=== PATIENT | female | born 1970 | race Caucasian/White ===

== ENCOUNTER 2016-08-02 21:19 | Inpatient (IN) | payer BC ==
[~2016-08-02] VITALS: Ht 162.6 cm; Wt 128.5 kg
[~2016-08-02 21:19] MED LIST: BUPR100T5 PO; CETI-115 PO; CLIN300C86 PO; FLUT9.9S; IPRA3AMP AEROSOL; LISI10TA PO; MONT5TAB14 PO; TIOT4MIS5 ORAL INH; diflucan PO
--- OUTSIDE RECORDS SUMMARY | 2016-08-02 21:22 | XMS REPORT | Continuity of Care Document ---
Author Author [facility] Jessica [facility] Address Unknown Phone Unavailable Support Name Relationship Address Phone THERESA MARIO Nicole JENSEN Caregiver [address] [place] [address] Unavailable SHORTY CHONG DO Caregiver [address] [place] [address] [place] [address] Unavailable BENJAMIN ALDANA Next Of Kin [address] [place] [address] Insurance Providers Guarantor Jay Aldana Address [address] [place] [address] Email [email or web address] Policy Number [id number] Subscriber's Name Jay Aldana Relationship 18 Self Group Number [id number] Chief Complaint and Reason for Visit Chief Complaint Skin Rash/Abscess/Injury Reason for Visit [id number] Cellulitis Problems Active Problems Medical Problem Onset Date Status Anxiety Unknown Acute Asthma exacerbation Unknown Acute Chronic sinusitis, unspecified Unknown Chronic Depression Unknown Chronic Dyspnea on exertion Unknown Acute HTN (hypertension) Unknown Chronic History of headache Unknown Chronic History of high cholesterol Unknown Chronic Obesity Unknown Chronic Steroid-induced hyperglycemia Unknown Acute Surgical Problem Onset Date Status History of ventral hernia repair Unknown Resolved Past Problems Medical Problem Onset Date Cellulitis Unknown Fungal infection of skin Unknown Medications Current Home Medications Medication Dose Units Route Directions Days Qty Instructions Start Date Bupropion Hcl (Wellbutrin Sr) 100 Mg Tablet.er 05/24/16 Cetirizine Hcl (Zyrtec) 10 Mg Tablet 10 Mg Oral Bedtime 30 Days 08/21 Clindamycin Hcl 300 Mg Capsule 300 Mg Oral Four Times Daily 7 Days [address] Shyam Del Real [employer] [facility] [address] [phone] 05/24/16 Diflucan 150 Mg Tab 150 Mg Oral One Time [address] Shyam Del Real [employer] [facility] [address] [phone] 05/24/16 Fluticasone Propionate (Flonase Allergy Relief 50 Mcg/Actuation Nasal) 9.9 Ml [place].susp Unknown Dose 05/24/16 Ipratropium/Albuterol Sulfate (Iprat-Albut 0.5-3(2.5) Mg/3 Ml) 3 Ml Solution 3 Ml Aerosol Tx. Four Times Daily 1 Box 04/13/15 Lisinopril (Prinivil) 10 Mg Tablet 10 Mg Oral Twice A Day 30 Days 04/13/15 Montelukast Sodium (Singulair) 5 Mg Tablet 1 Tab Oral Bedtime Tiotropium [place] (Spiriva Respimat) 4 Gm Mist.inhal 1 Puff Oral Inhalation Daily 05/24/16 Past Home Medications Medication Directions Ordered Status Azithromycin (Zithromax) 1 Gm Packet, 250 Mg Oral Onetime 04/10/15 Discontinued Benzonatate (Tessalon Perle) 100 Mg Capsule, 200 Mg Oral Three Times A Day as needed for Prn Orders 04/10/15 Discontinued Cetirizine Hcl/Pseudoephedrine (Zyrtec-D Tablet) Unknown Strength Tab.er.12h, Unknown Dose Oral Daily 04/10/15 Discontinued Clonazepam (Klonopin) 0.5 Mg Tablet, 0.5 Tab Oral As Needed 04/10/15 Discontinued Diflu , 05/24/16 Discontinued Fluticasone/Salmeterol (Advair 500-50 Diskus) 1 Disk W/Dev Disk.w.dev, 1 Puff Oral Inhalation Resp.tx Twice A Day 04/10/15 Discontinued Lisinopril (Prinivil) 5 Mg Tablet, 10 Mg Oral Twice A Day 04/10/15 Discontinued Prednisone 1 Mg Tablet, 50 Mg Oral Daily 04/10/15 Discontinued Prednisone 1 Mg Tablet, 40 Mg Oral Daily 04/10/15 Discontinued Prednisone 1 Mg Tablet, 30 Mg Oral Daily 04/10/15 Discontinued Prednisone 1 Mg Tablet, 20 Tab Oral Daily 04/10/15 Discontinued Prednisone 1 Mg Tablet, 10 Mg Oral Daily 04/10/15 Discontinued Social History Social History Problem Response Recorded Date/Time Onset Date Status Former tobacco use 04/10/2015 11:58am Unknown Resolved Has the pt used tobacco in the last 12 months No 04/10/2015 12:01pm Not Applicable Not Applicable Tobacco Usage none 04/10/2015 11:59am Not Applicable Not Applicable Hospital Discharge Instructions No hospital discharge instructions. Plan of Care Discharge Date 05/24/16 11:15am Disposition 01 DISCHARGED HOME, SELF-CARE Condition at Discharge Stable Instructions/Education Provided Cellulitis (ED) Tinea Corporis (DC) Prescriptions See Medication Section Referrals SHORTY CHONG DO Address: [address] [place] [address] RAHUL WHITE [phone] Additional Instructions/Education Take clindamycin as directed. Use Diflucan today as directed. Follow with primary care provider. Keep gauze in the area of the skin rash to wick away moisture Functional Status No functional status results. Allergies, Adverse Reactions, Alerts Allergen Type Severity Reaction Status Last Updated Morphine Allergy Severe HYPOTENSION Active 05/24/16 nerissa Allergy Unknown SWELLING Active 05/24/16 Immunizations Query Response on File Recorded Date/Time Hx Influenza Vaccination Y fall 201404/10/15 12:01pm Hx Pneumococcal Vaccination No 04/10/15 12:01pm Hx Influenza Vaccination Y fall 201404/10/15 12:01pm Vital Signs Acute Vital Signs Vital Response Date/Time Temperature (Fahrenheit) 97.7 deg F (96.8 - 99.1) 05/24/2016 11:04am Temperature (Calculated Celsius) 36.26493 degrees C (36.0 - 37.3) 05/24/2016 11:04am Pulse Rate (adult) 110 bpm (60 - 100) 05/24/2016 11:04am Respiratory Rate 20 breaths/min (10 - 20) 05/24/2016 11:04am O2 Sat by Pulse Oximetry 97 % (90 - 100) 05/24/2016 11:04am Blood Pressure 157/109 mm Hg 05/24/2016 11:04am Height (Inches) 63.50 inches 05/24/2016 11:04am Weight (Kilograms) 126.100 kg 05/24/2016 11:04am Body Mass Index (BMI) 48.0 05/24/2016 11:04am Results No known relevant diagnostic tests, laboratory data and/or discharge summary. Procedures No known history of procedures. Encounters Encounter Location Arrival/Admit Date Discharge/Depart Date Attending Provider Departed Emergency Room [facility] 05/24/16 10:12am 05/24/16 11: 15am THERESA MARIO APRN Recent Diagnosis
--- NOTE | 2016-08-02 21:33 | ERPDOC ---
Departure Disposition Decision Date: August 02, 2016 Disposition Decision Time: 22:29 Disposition: 02 TO [facility] Impression Impression Impression: Primary Impression: Chest pain Chest pain type: unspecified Qualified Codes: R07.9 - Chest pain, unspecified Additional Impression: Elevated troponin Severity: Moderate Condition: Stable Seen By: Mid-level only Referrals: SHORTY CHONG DO (Family) Problems/Meds/Labs Reviewed?: Yes Medications reviewed and manag: Yes Follow up care ordered?: Yes Mental Status: Alert HPI - Chest Pain General Chief Complaint: Chest Pain Stated Complaint: CP Time Seen by Provider: 21:21 Source: patient Exam Limitations: no limitations HPI - Chest Pain Initial Comments She presents to ER tonight for evaluation of chest pain. This started last night. Feels like a tight band around her upper chest that does come and go. Got worse today and more persistent in nature. She did get a little nauseated and diaphoretic about an hour before coming to ER. Upon arrival she is very anxious but does deny any chest pain or tightness at this time. Former smoker, quit 7 years ago. She has never seen a motor grader rough grade in the past but she has a significant family history of heart disease. Her uncle did have a sudden cardiac arrest due to DC about 3 weeks ago, her father had bypass surgery at age 50. She has been using her inhaler at home to see if this will help but has not really made a difference. Occurred At: home Onset/Timing: Gradual Duration: 12-24 hrs Activities at Onset/Context: none Quality: sharp Associated Symptoms: diaphoresis, nausea/vomiting (Nausea), shortness of breath (with the pain), DENIES: abdominal pain, back pain, dizziness, edema, fast HR, fatigue, fever/chills, headache, heartburn, irregular HR, rash, slow HR , swelling/lump in chest, syncope, weakness Chest Pain Radiation: no radiation Nitro Today/Relief: no nitro taken today Aspirin Treatment Today: 81 mg x 4 Prior Chest Pain/Cardiac [place]: no prior chest pain, no prior cardiac workup Hx of Similar Symptoms: No Allergies: Coded Allergies: morphine (Verified Allergy, Severe, HYPOTENSION, 05/24/16) HYPOTENSION, ITCHING nerissa (Verified Allergy, Unknown, SWELLING, 05/24/16) FACE AND TONGUE SWELLING Past History Patient Surgical History 3 Umbilical hernia [id number] Ventral hernia repair with abdominal reconstruction Vaccines Hx Influenza Vaccination: Yes (FALL 2014) Hx Pneumococcal Vaccination: No Social History Sexuality: male partner Review of Systems Constitutional Constitutional: DENIES: chills, dizziness, fatigue, fever, weakness ENMT Ears: DENIES: drainage, pain Sinuses: DENIES: congestion, rhinorrhea Mouth/Throat: DENIES: painful swallowing, scratchy throat, sore throat Cardiovascular Cardiac: chest pain, DENIES: dyspnea on exertion, orthopnea Rhythm/Rate: DENIES: irregular beat, palpitations Vascular: DENIES: pedal edema, unilateral swelling Pulmonary Respiratory: DENIES: cough, dyspnea, sputum, tachypnea GI Upper Abdomen: nausea, DENIES: pain, vomiting Lower Abdomen: DENIES: constipation, diarrhea, pain Integumentary Skin: DENIES: rash Neurological General: DENIES: headache, numbness, tingling, weakness Physical Exam General General Nourishment: well nourished, well developed, appears stated age, no acute distress, adult General Body Habitus: well groomed Vitals and Pain First Documented Vital Signs Date Time Temp Pulse Resp B/P Pulse Ox O2 Delivery O2 Flow Rate FiO2 08/02/16 22:46 104 18 158/97 94 Room Air 08/02/16 23:15 98.5 Weight: Kilograms: Height (feet): 5 Height (inches): 63.50 Triage Pain Scale: RN VS reviewed by Provider: Yes Normal Exams: Neck: Full range of motion, without adenopathy, JVD, bruits or thyromegaly Chest/Resp: Clear all singer, with good airflow, and symmetry bilaterally CV: Regular rate and rhythm, without murmur or gallop, Pulses 2+ all extremities, capillary refill, <2 seconds all ext., no pedal edema noted Abdomen: Bowel sounds positive, soft, non-tender, non-distended, no hepatosplenomegaly, masses or bruits noted Lymphatic: No lymphadenopathy, or lymphedema noted Integumentary: No rashes, hives, or bruising noted Neurologic: Patient is alert, and oriented Psychiatric: Patient exhibits, appropriate attention, emotion and affect Differential Diagnoses Considering: Acute DC, Anxiety/Panic, Angina, Esophageal Spasm, GERD Progress Results/Orders Orders Procedure Category Date Status Time EKG EKG 08/02/16 Taken Cbc W/Auto LAB 08/02/16 Complete Diff-Reflex Manual Bmp - Basic Metabolic LAB 08/02/16 Complete Panel Troponin I W LAB 08/02/16 Complete Hemolysis Index Chest 1 View RAD 08/02/16 Taken Aspirin (Asa) PHA 08/03/16 In Process 09:00 Iv Lock (Ed Only) EDM 08/02/16 Transmitted 21:55 Nitroglycerin PHA 08/02/16 In Process (Nitrostat) 22:00 Place In Facility As: ADMIT 08/02/16 Transmitted Nitroglycerin PHA 08/02/16 Complete Ointment (Nitro-Bid) 22:30 Enoxaparin (Lovenox) PHA 08/02/16 Complete 22:30 Troponin I W LAB 08/03/16 Logged Hemolysis Index 03:30 Troponin I W LAB 08/03/16 Logged Hemolysis Index 09:30 Troponin I W LAB 08/03/16 Logged Hemolysis Index 15:30 Enoxaparin (Lovenox) PHA 08/03/16 In Process 09:00 Nitroglycerin PHA 08/03/16 In Process Ointment (Nitro-Bid) 03:00 Lab Results Laboratory Tests Test 08/02/16 21:38 White Blood Count 10.2T/MM3 Red Blood Count 4.82M/MM3 Hemoglobin 14.9GM/DL Hematocrit 42.0% Mean Corpuscular Volume 87.1UM3 Mean Corpuscular Hemoglobin 30.9UUG Mean Corpuscular Hemoglobin Concent 35.5GM/DL RDW Standard Deviation 39.4FL Platelet Count 397T/MM3 Mean Platelet Volume 8.4UM3 Immature Granulocyte % (Auto) % Neutrophils (%) (Auto) % Lymphocytes (%) (Auto) % Monocytes (%) (Auto) % Eosinophils (%) (Auto) % Basophils (%) (Auto) % Absolute Immature Granulocyte (auto T/MM3 Absolute Neutrophils (auto) T/MM3 Absolute Lymphocytes (auto) T/MM3 Absolute Monocytes (auto) T/MM3 Absolute Eosinophils (auto) T/MM3 Absolute Basophils (auto) T/MM3 Neutrophils % (Manual) 84.0% Band Neutrophils % 1.0% Lymphocytes % (Manual) 13.0% Monocytes % (Manual) 1.0% Basophils % (Manual) 1.0% Absolute Neutrophils (Manual) 8.6T/MM3 Band Neutrophils # 0.1T/MM3 Lymphocytes # (Manual) 1.3T/MM3 Monocytes # (Manual) 0.1T/MM3 Basophils # (Manual) 0.1T/MM3 Red Cell Morphology Comment Normal Turbidity < 20 Sodium Level 142MEQ/L Potassium Level 4.5MEQ/L Chloride Level 104MEQ/L Carbon Dioxide Level 22MEQ/L Anion Gap 16MEQ/L Blood Urea Nitrogen 22.0MG/DL Creatinine 0.9MG/DL Glomerular Filtration Rate Calc 67 BUN/Creatinine Ratio 24RATIO Glucose Level 215MG/DL Calculated Osmolality 282MOSM/KG Calcium Level 9.9MG/DL Icterus Index < 2 Troponin I 0.127ng/ml Chemistry Specimen Hemolysis < 15 Medications Current ED Medications Nitroglycerin (Nitrostat) 0.4 mg Q5MIN PRN SL CHEST PAIN; Start 08/02/16 at 22: 00 Progress Progress 2216- Troponin is elevated at 0.127. She did have another episode of chest pain but it went away prior to any Nitro given. Did talk with Lenore about the elevated troponin. She does want to have Dr Luevano consulted regarding her labs and so will contact him. EKG does show some mild St depression in V5 and V6. CBC is normal. BMP is normal. Troponin does come back elevated at 0.127. She is not having any chest pain at this time. Chest xray is normal. Did call and speak with Dr Guerrero and he does agree to admit at this time OBS to CCU. Orders for Lovenox and Nitro paste given. Xray Xray : Reason for Exam: Chest pain Xray: CXR Portable Interpretation: Normal MARTINA RODRIGUEZ APRN August 02, 2016 21:33
[2016-08-02 21:45] LABS: HGB - HEMOGLOBIN 14.9 GM/DL (12-16); MEAN CORPUSCULAR HGB 30.9 UUG (26-34); MEAN CORPUSCULAR HGB CONC(MCHC 35.5 GM/DL (31-37); MEAN CORPUSCULAR VOLUME 87.1 UM3 (80-100); MEAN PLATELET VOLUME 8.4 UM3 (9.4-12.4); RED BLOOD COUNT 4.82 M/MM3 (4.00-5.20); WBC - WHITE BLOOD COUNT 10.2 T/MM3 (4.5-11.0)
[2016-08-02 21:52] LABS: ANION GAP 16 MEQ/L (5-15); BUN/CREATININE RATIO 24 RATIO (6-26); CALCIUM 9.9 MG/DL (8.4-10.2); CHLORIDE 104 MEQ/L (98-107); CO2 - CARBON DIOXIDE 22 MEQ/L (22-30); CREATININE 0.9 MG/DL (0.7-1.2); GLOMERULAR FILTRATION RATE 67; GLUCOSE 215 MG/DL (65-110); POTASSIUM 4.5 MEQ/L (3.6-5); SODIUM 142 MEQ/L (134-144)
[2016-08-02] MEDS ORDERED: NITROGLYCERIN 0.4 MG SUBLINGUAL TABLET SL PRN (22:00)
[2016-08-02 22:30] LABS: BAND NEUTROPHILS # 0.1 T/MM3; BASOPHILS # (MANUAL) 0.1 T/MM3 (0-0.2); LYMPHOCYTES # (MANUAL) 1.3 T/MM3 (1-4.8); MONOCYTES # (MANUAL) 0.1 T/MM3 (0-0.8); NEUTROPHILS #(MANUAL)-ABSOLUTE 8.6 T/MM3 (1.8-7.7); TOTAL CELLS COUNTED 100 %
[2016-08-02] MEDS ORDERED: NITROGLYCERIN 2% OINTMENT 1 G PACKET TOP ONE (22:30)
[2016-08-02] MEDS ORDERED: ENOXAPARIN 120 MG/0.8 ML INJECTION SQ ONE (22:30)
[2016-08-02] MEDS: ASPIRIN 81 MG CHEWABLE TABLET PO SCH (22:39)
--- NOTE | 2016-08-02 23:00 | NUR ---
Admit To CCU 2 at this time, in no acute distress, will continue to monitor.
[2016-08-02 23:05] VITALS: BP 177/105; PULSE 111; RESP 20; O2SAT 95
[2016-08-02 23:07] VITALS: PULSE 110
[2016-08-02 23:09] VITALS: Ht 162.6 cm; Wt 128.5 kg
[2016-08-02 23:15] VITALS: BP 171/98; PULSE 107; RESP 28; TEMP 98.5; O2SAT 94
[2016-08-02 23:30] VITALS: BP 142/77; PULSE 103; RESP 22; O2SAT 94
[2016-08-02 23:45] VITALS: BP 142/73; PULSE 99; RESP 22; O2SAT 93
[2016-08-03] VITALS (33 sets, daily range): BP systolic 109–210; BP diastolic 55–111; PULSE 69–107; RESP 12–61; TEMP 97.9–98.4; O2SAT 92–99
[2016-08-03] MEDS ORDERED: CLON0.5T4 PO (00:26)
[2016-08-03] MEDS ORDERED: MONT10TA25 PO (00:26)
[2016-08-03] MEDS ORDERED: PROM25TA7 PO (00:26)
[2016-08-03] MEDS ORDERED: PRED10TA PO (00:26)
[2016-08-03] MEDS ORDERED: CLONAZEPAM 0.5 MG TABLET PO PRN (00:30)
[2016-08-03] MEDS ORDERED: ONDANSETRON 4mg/2ml INJECTION IV PRN (00:30)
[2016-08-03] MEDS ORDERED: HYDROMORPHONE 2mg/ml INJECTION IV PRN (00:30)
[2016-08-03] MEDS ORDERED: METOCLOPRAMIDE 10mg/2ml INJECTION IV PRN (00:30)
[2016-08-03] MEDS ORDERED: NITROGLYCERIN 0.4 MG SUBLINGUAL TABLET SL PRN (00:30)
[2016-08-03] MEDS ORDERED: SODI45SP7 EA NOSTRIL (00:51)
[2016-08-03] MEDS ORDERED: ALBU18HF2 ORAL INH (00:51)
[2016-08-03] MEDS: NORMAL SALINE 1,000 ML IV SCH ×2 (00:52→14:15)
[2016-08-03] MEDS ORDERED: OXYM15MI INH (01:07)
[2016-08-03] MEDS ORDERED: LISI10TA7 PO (01:19)
[2016-08-03] MEDS: NITROGLYCERIN 2% OINTMENT 1 G PACKET TOP SCH ×8 (01:36→21:29)
[2016-08-03 01:41] LABS: BLOOD, URINE 2+ (NEGATIVE); COLOR,URINE YELLOW (YELLOW); LEUKOCYTE ESTERASE ,URINE NEGATIVE (NEGATIVE); NITRITE,URINE NEGATIVE (NEGATIVE); UROBILINOGEN,URINE NORMAL (NORMAL)
[2016-08-03 01:44] LABS: BACTERIA,URINE NONE SEEN (NEGATIVE); SQUAMOUS EPITHELIAL CELL,UR 0-5; WBC,URINE 0-1 /HPF (0-5)
--- NOTE | 2016-08-03 02:47 | NUR ---
Provider Call From Selma maciel to discuss Metoprolol further, provider and pt are in agreement that benefit out weighs risk r/t asthma. Selma also requests to draw am labs and next troponin now. lab call for draw.
[2016-08-03 02:57] LABS: BASOPHILS % (AUTO) 0.3 % (0-2); EOSINOPHILS % (AUTO) 0.2 % (0-4); HCT - HEMATOCRIT 39.2 % (36-46); HGB - HEMOGLOBIN 13.7 GM/DL (12-16); IMMATURE GRANULOCYTE # (AUTO) 0.03 T/MM3 (0.00-0.03); IMMATURE GRANULOCYTE % (AUTO) 0.3 % (0.0-0.5); LYMPHOCYTES # (AUTO) 1.9 T/MM3 (1-4.8); LYMPHOCYTES % (AUTO) 19.5 % (23-45); MEAN CORPUSCULAR HGB 31.3 UUG (26-34); MEAN CORPUSCULAR HGB CONC(MCHC 34.9 GM/DL (31-37); MEAN CORPUSCULAR VOLUME 89.5 UM3 (80-100); MEAN PLATELET VOLUME 8.4 UM3 (9.4-12.4); MONOCYTES # (AUTO) 0.3 T/MM3 (0-0.8); MONOCYTES % (AUTO) 3.4 % (0-9.0); NEUTROPHILS #(AUTO)-ABSOLUTE 7.6 T/MM3 (1.8-7.7); NEUTROPHILS % (AUTO) 76.3 % (33-66); RED BLOOD COUNT 4.38 M/MM3 (4.00-5.20); WBC - WHITE BLOOD COUNT 9.9 T/MM3 (4.5-11.0)
[2016-08-03 03:03] LABS: ALBUMIN/GLOBULIN RATIO 1.4 RATIO (1.1-2.2); ALKALINE PHOSPHATASE 68 U/L (38-126); ALT (SGPT) 38 U/L (9-52); ANION GAP 12 MEQ/L (5-15); AST (SGOT) 28 U/L (14-36); BUN/CREATININE RATIO 24 RATIO (6-26); CALCIUM 9.3 MG/DL (8.4-10.2); CHLORIDE 104 MEQ/L (98-107); CO2 - CARBON DIOXIDE 26 MEQ/L (22-30); CREATININE 0.8 MG/DL (0.7-1.2); GLOMERULAR FILTRATION RATE 77; GLUCOSE 151 MG/DL (65-110); POTASSIUM 4.4 MEQ/L (3.6-5); SODIUM 142 MEQ/L (134-144); TOTAL PROTEIN 6.8 G/DL (6.3-8.2)
[2016-08-03 03:33] LABS: THYROID STIM HORMONE-TSH 0.48 MIU/L (0.47-4.68)
--- NOTE | 2016-08-03 05:31 | NUR ---
Pharmacy Notified Scott Hoffmann of Heparin consult. States recommended 12h start time from previous Lovonox dosing. Selma JENSEN had previously verbalizes to this RN to clarify with pharmacy and follow their recommendations. Will plan to wait at this time per Scott who states pharmacy will be staff shortly and will evaluate further.
[2016-08-03] MEDS ORDERED: HEPARIN 20,000 units/D5W 500ml 500 ML IV SCH ×2 (06:00→08:00)
[2016-08-03 07:04] LABS: HEMOGLOBIN A1C 5.6 % (6.1-7.9)
--- NOTE | 2016-08-03 07:59 | NUR ---
HEPARIN CONSULT (Initial): Dx: CHEST PAIN, INCREASED TROPONIN Baseline PTT = 39.7 Sec. Baseline platelet count = 334 T/mm3. PTT Target Range = 50-75 Will give no Heparin Bolus, start Heparin Drip at 1520units/hr (38ml/hr). Heparin 20,000 units in D5W 500ml. We will continue to monitor and make adjustments accordingly. Thank you.
--- NOTE | 2016-08-03 08:08 | NUR ---
Heparin Gtt At this time holding on starting heparin gtt per Selma JENSEN with Yolanda. Will start when told.
[2016-08-03] MEDS: BuPROPion SR (12 HR) 100 MG TABLET PO SCH ×2 (08:50→21:17)
[2016-08-03] MEDS: LISINOPRIL 5 MG TABLET PO SCH (08:50)
[2016-08-03] MEDS ORDERED: ENOXAPARIN 120 MG/0.8 ML INJECTION SQ SCH (09:00)
--- NOTE | 2016-08-03 10:11 | DI ---
Indication: ITS.REASON: chest pain PROCEDURE: CHEST 1 VIEW: Encounter: Initial Comparison: April 10, 2015 FINDINGS: The lungs are clear. There is no abnormal airspace opacity, pleural effusion or pneumothorax identified. The heart size, pulmonary vasculature and mediastinum are within normal limits. No significant skeletal abnormality is seen. IMPRESSION: No acute cardiopulmonary abnormality. .
--- NOTE | 2016-08-03 10:59 | NUR ---
CM SPOKE WITH PT, INTRODUCED SELF, EXPLAINED ROLE, PROVIDED CONTACT. PT STATED SHE LIVES IN [place] WITH SPOUSE, AND HER DC PLAN IS TO RETURN HOME. SHE DENIED HAVING ANY DC NEEDS FOR THIS WORKER. ENCOURAGED HER TO CALL IF QUESTIONS/NEEDS DO ARISE. Addendum: 08/03/16 at 1100 by VINOD DAO Amended: Links added.
--- NOTE | 2016-08-03 11:00 | NUR ---
KEVAN GERMAN IS 2. Addendum: 08/03/16 at 1101 by VINOD RODRIGUEZ SW Amended: Links added.
[2016-08-03] MEDS: ENOXAPARIN 150 MG/ML INJECTION SQ SCH ×2 (11:28→21:21)
[2016-08-03] MEDS ORDERED: ALBUTEROL INH.SOLN. 2.5mg/3ml (0.083%) Neb. AEROSOL PRN (15:00)
[2016-08-03] MEDS ORDERED: TIOTROPIUM 18mcg/cap HANDIHALER ORAL INH ONE (15:15)
[2016-08-03] MEDS: SPIRIVA RESPIMAT INH SCH (15:23)
--- NOTE | 2016-08-03 17:05 | NUR ---
CARDIOLOGY KILEY OLIVIER, MIKEY, AT BEDSIDE. RECEIVED ORDERS FOR NPO AT MIDNIGHT, CONSENT FOR HEART CATH WITH POSSIBLE PCI, 08/04/16 0400 AM TROPONIN AND DISCONTINUED DUPLICATED NITROGLYCERIN PASTE.
--- NOTE | 2016-08-03 17:06 | HPPDOC ---
HPI - Adult Date DATE: 08/03/16 TIME: 16:45 General Date of Admission Date of Admission: August 03, 2016 at 12:26 History of Present Illness She presents to ER tonight for evaluation of chest pain. This started last night. Feels like a tight band around her upper chest that does come and go. Got worse today and more persistent in nature. Chest pain did not radiate to any part of the body. Denies shortness of air and palpitations. She did get a little nauseated and diaphoretic about an hour before coming to ER. Upon arrival she is very anxious but does deny any chest pain or tightness at this time. Former smoker, quit 7 years ago. Hx of well controlled asthma and HTN. She has never seen a production stage manager in the past but she has a significant family history of heart disease. Her uncle did have a sudden cardiac arrest due to PA about 3 weeks ago, her father had bypass surgery at age 50. She has been using her inhaler at home to see if this will help but has not really made a difference. Past Medical History Past Medical History Metabolic: hypertension, other (morbid obesity), DENIES: cancer, diabetes ENMT: DENIES: ear infections Cardiac: DENIES: A-fib, CAD, CHF, angina, echocardiogram Respiratory: other (asthma) Female: DENIES: pyelonephritis, renal insufficiency Neurological: DENIES: cerebral hemorrhage, headaches Musculoskeletal: DENIES: neck pain Integumentary: DENIES: eczema Hematologic: DENIES: ITP/TTP Infectious: DENIES: hepatitis B Psychological: DENIES: alcohol abuse, dementia Surgical History General: DENIES: appendix, tonsils Cardiac: DENIES: vascular bypass Reproductive/: Current Medications Home Meds Active Scripts Cetirizine HCl (Zyrtec) 10 Mg Tablet, 10 MG PO HS for 30 Days, TAB Prov:ELIF GUILLORY Munir CLINICAL LAB SCIENTIST 04/13/15 Reported Medications Lisinopril (Lisinopril) 10 Mg Tablet, 20 MG PO DAILY for HYPERTENSION, TAB 08/03/16 Oxymetazoline HCl (Anefrin) 15 Ml Mist, 2 SPRAY INH [id number] 08/03/16 Albuterol Sulfate (Ventolin HFA 90 mcg/actuation) 18 Gm Hfa.aer.ad, 1 PUFF ORAL INH Q4H Y for SHORTNESS OF AIR/WHEEZING, INHALER 5/29/17 Sodium Chloride (Deep Sea) 450 [place]/45 Ml [place], 1 SPRAY EA NOSTRIL PRN Y for NASAL CONGESTION, ML 08/03/16 Montelukast Sodium (Montelukast Sodium) 10 Mg Tablet, 10 MG PO DAILY, TAB Take 1 tablet, by mouth, one time a day (at bedtime). 08/03/16 Prednisone (Prednisone) 10 Mg Tablet, 10 MG PO WB Y for PRN ORDERS, TAB Take 1 tablet, by mouth, once a day with breakfast. 08/03/16 Clonazepam (Clonazepam) 0.5 Mg Tablet, 0.5 TAB PO HS, TAB 08/03/16 Tiotropium [place] (Spiriva Respimat) 4 Gm Mist.inhal, 1 PUFF ORAL INH DAILY, INHALER 05/24/16 Fluticasone Propionate (Flonase Allergy Relief 50 mcg/actuation Nasal) 9.9 Ml [place].susp 05/24/16 Bupropion HCl (Wellbutrin Sr) 100 Mg Tablet.er, 200 MG PO BID 05/24/16 Discontinued Reported Medications Montelukast Sodium (Singulair) 5 Mg Tablet, 1 TAB PO HS, TAB 05/24/16 Allergies: Coded Allergies: meperidine (Verified Allergy, Severe, HALLUCINATIONS, 08/03/16) morphine (Verified Allergy, Severe, HYPOTENSION, 05/24/16) HYPOTENSION, ITCHING nerissa (Verified Allergy, Unknown, SWELLING, 05/24/16) FACE AND TONGUE SWELLING Family History FOUND: CAD, CHF, PA, asthma, hypertension Vaccines 2016 approx 1 year ago Social History Smoking Status: Former smoker Second Hand Exposure: No Substance Use Type: does not use Alcohol Intake: none Marital Status: Sexuality: male partner Housing: house Household Members: spouse Advance Directives: No DPOA for Healthcare Only Review of Systems Constitutional: DENIES: anorexia, early awakening, fatigue, night sweats, syncope, weakness, weight gain, weight loss Eyes Vision: DENIES: blurring, double vision ENMT Hearing: DENIES: tinnitus Balance: DENIES: vertigo Mouth/Throat: DENIES: sore throat Jaw: DENIES: clicking Cardiovascular DENIES: chest pain, dyspnea on exertion, orthopnea, paroxysmal nocturnal dysp Rhythm/Rate: DENIES: irregular beat, palpitations, tachycardia Vascular: pedal edema, DENIES: Raynaud's Pulmonary Respiratory: DENIES: cough, dyspnea, hyperventilation, pleuritic chest pain, sputum, tachypnea GI Upper Abdomen: DENIES: nausea, vomiting General: DENIES: frequency, polyuria, urgency Musculoskeletal General: DENIES: cramps, pain, tenderness Integumentary Skin: DENIES: itching Neurological General: headache, DENIES: fainting, vertigo, weakness Psychiatric Psychiatric: anxiety, depression, nervousness, DENIES: irritability Endocrine DENIES: heat/cold intolerance Hematologic/Lymphatic DENIES: anemia Allergic/Immunological Comments asthma Physical Exam General General Nourishment: obese Vital Signs Vital Signs Date Time Temp Pulse Resp B/P Pulse Ox O2 Delivery O2 Flow Rate FiO2 08/03/16 15:00 97.9 77 20 128/86 95 Room Air Height (Feet): 5 Height (Inches): 4.00 Telemetry Rhythm: Sinus Rhythm Eyes Brief: FOUND: EOMI ENMT Brief: FOUND: mucosa moist Neck Brief: NOT FOUND: JVD Respiratory Brief: FOUND: clear all singer, equal bilaterally, NOT FOUND: wheezes Cardiovascular (brief) Cardiac Brief: FOUND: pedal edema, regular rate, regular rhythm Abdomen Palpation: FOUND: soft, NOT FOUND: tender Auscultation: FOUND: normo active Musculoskeletal (brief) Musculoskeletal Brief: NOT FOUND: spasm, tenderness Integumentary (brief) Integumentary Brief: FOUND: dry, pink, warm Neurologic RN Documented GCS Eye Opening: Verbal: Motor: Total: Psychiatric (brief) FOUND: alert, attentive, normal affect, oriented Laboratory Laboratory Tests Test 08/02/16 21:38 08/03/16 01:13 08/03/16 02:43 08/03/16 09:09 White Blood Count 10.2T/MM3 9.9T/MM3 Red Blood Count 4.82M/MM3 4.38M/MM3 Hemoglobin 14.9GM/DL 13.7GM/DL Hematocrit 42.0% 39.2% Mean Corpuscular Volume 87.1UM3 89.5UM3 Mean Corpuscular Hemoglobin 30.9UUG 31.3UUG Mean Corpuscular Hemoglobin Concent 35.5GM/DL 34.9GM/DL RDW Standard Deviation 39.4FL 40.7FL Platelet Count 397T/MM3 334T/MM3 Mean Platelet Volume 8.4UM3 8.4UM3 Immature Granulocyte % (Auto) % 0.3% Neutrophils (%) (Auto) % 76.3% Lymphocytes (%) (Auto) % 19.5% Monocytes (%) (Auto) % 3.4% Eosinophils (%) (Auto) % 0.2% Basophils (%) (Auto) % 0.3% Absolute Immature Granulocyte (auto T/MM3 0.03T/MM3 Absolute Neutrophils (auto) T/MM3 7.6T/MM3 Absolute Lymphocytes (auto) T/MM3 1.9T/MM3 Absolute Monocytes (auto) T/MM3 0.3T/MM3 Absolute Eosinophils (auto) T/MM3 0.0T/MM3 Absolute Basophils (auto) T/MM3 0.0T/MM3 Neutrophils % (Manual) 84.0% Band Neutrophils % 1.0% Lymphocytes % (Manual) 13.0% Monocytes % (Manual) 1.0% Basophils % (Manual) 1.0% Absolute Neutrophils (Manual) 8.6T/MM3 Band Neutrophils # 0.1T/MM3 Lymphocytes # (Manual) 1.3T/MM3 Monocytes # (Manual) 0.1T/MM3 Basophils # (Manual) 0.1T/MM3 Red Cell Morphology Comment Normal Turbidity < 20 < 20 Sodium Level 142MEQ/L 142MEQ/L Potassium Level 4.5MEQ/L 4.4MEQ/L Chloride Level 104MEQ/L 104MEQ/L Carbon Dioxide Level 22MEQ/L 26MEQ/L Anion Gap 16MEQ/L 12MEQ/L Blood Urea Nitrogen 22.0MG/DL 19.0MG/DL Creatinine 0.9MG/DL 0.8MG/DL Glomerular Filtration Rate Calc 67 77 BUN/Creatinine Ratio 24RATIO 24RATIO Glucose Level 215MG/DL 151MG/DL Calculated Osmolality 282MOSM/KG 278MOSM/KG Calcium Level 9.9MG/DL 9.3MG/DL Icterus Index < 2 < 2 Troponin I 0.127ng/ml 1.330ng/ml 4.200ng/ml Chemistry Specimen Hemolysis < 15 < 15 < 15 Urine Collection Type Cleancatch-midstream Urine Color Yellow Urine Turbidity Slt cldy Urine pH 5.0 Urine Specific [place] 1.020 Urine Protein Negative Urine Glucose (UA) Negative Urine Ketones Negative Urine Blood 2+ Urine Nitrite Negative Urine Bilirubin Negative Urine Urobilinogen NormalEU/DL Urine Leukocyte Esterase Negative Urine RBC 3-5/HPF Urine WBC 0-1/HPF Urine Squamous Epithelial Cells 0-5 Urine Amorphous Urates Few Urine Bacteria None seen Urine Culture Indicated Cult not indicated Activated Partial Thromboplast Time 39.7SEC D-Dimer < 150NG/ML Hemoglobin A1c 5.6% Magnesium Level 2.0MG/DL Total Bilirubin 0.60MG/DL Aspartate Amino Transf (AST/SGOT) 28U/L Alanine Aminotransferase (ALT/SGPT) 38U/L Alkaline Phosphatase 68U/L Total Protein 6.8G/DL Albumin 4.0G/DL Globulin 2.8G/DL Albumin/Globulin Ratio 1.4RATIO Thyroid Stimulating Hormone (TSH) 0.48MIU/L Test 08/03/16 15:22 Troponin I 4.620ng/ml Chemistry Specimen Hemolysis < 15 Radiology DATE OF EXAM: 08/02/16 ORDERING DOCTOR: MARTINA RODRIGUEZ APRN TYPE OF EXAM: CHEST 1 VIEW REASON FOR EXAM: chest pain Indication: ITS.REASON: chest pain PROCEDURE: CHEST 1 VIEW: Encounter: Initial Comparison: April 10, 2015 FINDINGS: The lungs are clear. There is no abnormal airspace opacity, pleural effusion or pneumothorax identified. The heart size, pulmonary vasculature and mediastinum are within normal limits. No significant skeletal abnormality is seen. IMPRESSION: No acute cardiopulmonary abnormality. Assessment & Plan Problems: (1) Elevated troponin Status: Acute (2) Chest pain Status: Acute Qualifiers: Chest pain type: unspecified Qualified Codes: R07.9 - Chest pain, unspecified (3) History of high cholesterol Status: Chronic (4) HTN (hypertension) Status: Chronic Qualifiers: Hypertension type: essential hypertension Qualified Codes: I10 - Essential (primary) hypertension (5) Asthma exacerbation Status: Acute (6) Obesity Status: Chronic Qualifiers: Obesity type: due to excess calories Obesity severity: morbid Qualified Codes: E66.01 - Morbid (severe) obesity due to excess calories Plan/Intensity of Service Metoprolol 25mg BID, Lisinopril 5mg, ASA 81mg, statin, therapeutic lovenox started. Troponin trending up. EKG shows ST depression. Plan for heart cath 08-04. Nitro past q 6hrs for chest pain. Echo pending. RCAT for asthma management. DVT Prophylaxis: Lovenox Code Status Full Code Hospital Course Summary Disclaimer The hospital course summary below is not to be considered part of the above Progress Note. KILEY OLIVIER CLINICAL LAB SCIENTIST August 03, 2016 16:48
--- NOTE | 2016-08-03 17:08 | NUR ---
STATUS PT A&OX3. DENIES CP AND HEADACHE PAIN. DENIES SOA. DENIES N/V. 1100 BP 157/95 WITH BP TRENDING DOWN 120-130S/70-100S. PT AFEBRILE , HR 70-80S, TACHYPNEA 20-30s WITH SATURATIONS 94-96%. 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 ADEQUATE OUTPUT. ADEQUATE APPETITE. PT IS RESTING IN BED AT THIS TIME WATCHING TV.
--- NOTE | 2016-08-03 18:05 | NUR ---
STATUS PT A&OX3. DENIES CP, BEST PAIN, AND NAUSEA. VSS. PT HAS READ AND SIGNED CONSENT FORM. DENIES NEED FOR EDUCATION. 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 PT RESTING IN BED, WORKING ON LAPTOP AND WATCHING TV.
[2016-08-03] MEDS ORDERED: INHALER ASSIST DEVICE (Optichamber) MC ONE (21:00)
[2016-08-03] MEDS ORDERED: CLONAZEPAM 0.5 MG TABLET PO SCH ×2 (22:00)
[2016-08-03] MEDS ORDERED: ATORVASTATIN 40 MG TABLET PO SCH (22:00)
--- NOTE | 2016-08-03 22:09 | NUR ---
Status Pt denies chest pain. C/o slight headache. Denies need for pain meds. Nitro paste replaced to right hip. Per pt, FIRMWARE ARCHITECT suggested to move it away from chest, may decrease headache. Daughter visited this evening. Pt's VSS. Remains on RA. Up to restroom several times.
[2016-08-04] VITALS (11 sets, daily range): BP systolic 95–119; BP diastolic 50–72; PULSE 68–82; RESP 12–53; TEMP 97.9; O2SAT 91–98
--- NOTE | 2016-08-04 00:14 | NUR ---
Oxygenation Pt asleep and on RA. Oxygen saturation periodically drops to mid 80's. Recovers back to mid 90's after a short period of time. RN placed pt on 2L O2/NC. Pt denies history of sleep apnea. Will continue to monitor.
[2016-08-04 01:48] LABS: LDL CHOLESTEROL,CALCULATED 142.8 (66-159); RISK FACTOR 4.4 RATIO (0-4.0); VLDL CHOLESTEROL 25.2 MG/DL (0-28)
--- NOTE | 2016-08-04 03:00 | NUR ---
Lovenox MARQUISE Mosquera, called at this time to ensure Lovenox has been DC'd on this pt. RN did clarify that the 2300 dose of Lovenox was administered as ordered. Verbalized understanding. Lovenox DC'd.
[2016-08-04] MEDS: NITROGLYCERIN 2% OINTMENT 1 G PACKET TOP SCH ×2 (03:01→08:53)
[2016-08-04] MEDS: NORMAL SALINE 1,000 ML IV SCH (03:02)
[2016-08-04 04:50] LABS: HCT - HEMATOCRIT 40.2 % (36-46); HGB - HEMOGLOBIN 13.5 GM/DL (12-16); MEAN CORPUSCULAR HGB 30.8 UUG (26-34); MEAN CORPUSCULAR HGB CONC(MCHC 33.6 GM/DL (31-37); MEAN CORPUSCULAR VOLUME 91.6 UM3 (80-100); MEAN PLATELET VOLUME 8.7 UM3 (9.4-12.4); RED BLOOD COUNT 4.39 M/MM3 (4.00-5.20); WBC - WHITE BLOOD COUNT 9.7 T/MM3 (4.5-11.0)
[2016-08-04 05:00] LABS: ANION GAP 10 MEQ/L (5-15); BUN/CREATININE RATIO 21 RATIO (6-26); CALCIUM 8.9 MG/DL (8.4-10.2); CHLORIDE 106 MEQ/L (98-107); CO2 - CARBON DIOXIDE 26 MEQ/L (22-30); CREATININE 0.8 MG/DL (0.7-1.2); GLOMERULAR FILTRATION RATE 77; GLUCOSE 112 MG/DL (65-110); POTASSIUM 4.4 MEQ/L (3.6-5); SODIUM 142 MEQ/L (134-144)
--- NOTE | 2016-08-04 06:03 | NUR ---
Shift Summary Pt slept well during the night, awakes easily for cares. Denies chest pain. C/o headache. Denies need for pain meds. VSS. Placed on 1-2L O2/NC during sleep due to brief desaturations in oxygen. Up to restroom several times. Output adequate. NS@75 infusing to peripheral IV to right forearm. NPO at midnight in preparation for heart cath today. Consent signed yesterday afternoon.
[2016-08-04 06:37] LABS: BAND NEUTROPHILS # 0.2 T/MM3; BASOPHILS # (MANUAL) 0.1 T/MM3 (0-0.2); EOSINOPHILS # (MANUAL) 0.3 T/MM3 (0-0.5); LYMPHOCYTES # (MANUAL) 3.7 T/MM3 (1-4.8); MONOCYTES # (MANUAL) 0.4 T/MM3 (0-0.8); TOTAL CELLS COUNTED 100 %
[2016-08-04] MEDS ORDERED: FENTANYL 100mcg/2ml INJECTION ONE (07:35)
[2016-08-04] MEDS ORDERED: VERAPAMIL 5mg/2ml INJECTION IV ONE (07:36)
[2016-08-04] MEDS ORDERED: MIDAZOLAM 2mg/2ml INJECTION ONE ×2 (07:36→08:07)
[2016-08-04] MEDS ORDERED: NITROGLYCERIN 50mg/10ml INJECTION IV ONE (07:36)
--- NOTE | 2016-08-04 07:37 | NUR ---
CATH To microbiology lab manager per bed. a/ox3. Denies discomfort.
[2016-08-04] MEDS ORDERED: NITROGLYCERIN 0.4 MG SUBLINGUAL TABLET SL PRN (08:15)
[2016-08-04] MEDS ORDERED: ATROPINE 1 MG/ML VIAL IV PRN (08:15)
[2016-08-04] MEDS ORDERED: MILK OF MAGNESIA 30 ML SUSP PO PRN (08:15)
[2016-08-04] MEDS ORDERED: ACETAMINOPHEN 325 MG TABLET PO PRN (08:15)
[2016-08-04] MEDS ORDERED: LORAZEPAM 2 MG/ML INJECTION IV PRN (08:15)
[2016-08-04] MEDS ORDERED: LORAZEPAM 1 MG TABLET PO PRN (08:15)
[2016-08-04] MEDS ORDERED: PROMETHAZINE 25 MG INJECTION IV PRN (08:15)
[2016-08-04] MEDS ORDERED: BISACODYL 10 MG SUPPOSITORY RECTALLY PRN (08:15)
[2016-08-04] MEDS ORDERED: BISACODYL 5 MG E.C. TABLET PO PRN (08:15)
[2016-08-04] MEDS ORDERED: ONDANSETRON 4mg/2ml INJECTION IV PRN (08:15)
[2016-08-04] MEDS ORDERED: METOCLOPRAMIDE 10mg/2ml INJECTION IV PRN (08:15)
[2016-08-04] MEDS ORDERED: MAG-AL + SIM LIQUID 30 ML UDC PO PRN (08:15)
[2016-08-04] MEDS ORDERED: NITROGLYCERIN 2% OINTMENT 1 G PACKET TOP ONE (08:21)
--- NOTE | 2016-08-04 08:30 | NUR ---
CATH Patient returned to room per bed post heart cath. Right groin site intact. Patient denies discomfort. Patient's aware of transfer via phone call.
[2016-08-04] MEDS: LISINOPRIL 5 MG TABLET PO SCH (08:49)
[2016-08-04] MEDS: BuPROPion SR (12 HR) 100 MG TABLET PO SCH (08:49)
[2016-08-04] MEDS: ASPIRIN 81 MG CHEWABLE TABLET PO SCH (08:54)
[2016-08-04] MEDS: SPIRIVA RESPIMAT INH SCH (08:59)
--- NOTE | 2016-08-04 09:34 | CVPROF ---
DATE OF PROCEDURE August 04, 2016 The patient is a 46-year-old lady who was admitted with [id number] myocardial infarction and was referred for further evaluation by cardiac catheterization and possible intervention. Informed consent was obtained after explaining the procedure and the potential risks to the patient who agreed to proceed with the procedure. PROCEDURE 1. Left heart catheterization. 2. Coronary angiography. 3. Left ventriculography. TECHNIQUE The patient was prepped and draped in the usual sterile techniques. 1% lidocaine was used for local anesthesia. Using modified Seldinger technique, arterial access was obtained into the right femoral artery with placement of a 6-Romanian arterial sheath. Conscious sedation was performed using Versed and fentanyl. LEFT VENTRICULOGRAPHY Left ventriculography in single-plane JONES shallow projection showed normal LV systolic function with ejection fraction of about 65% with no mitral regurgitation or gradient across the aortic valve. LVEDP was about 8. CORONARY ANGIOGRAPHY Left main had about 20% stenosis. It bifurcated into left anterior descending and left circumflex arteries. Left anterior descending artery was a medium caliber vessel with diffuse disease with stenosis of about 70% in mid segment and 80% at the junction of the mid and distal thirds of the vessel. Diagonals were small with the second diagonal showing about 30% stenosis. Left circumflex artery had 80-90% proximal stenosis with ectatic region right distal to this lesion. Mid circumflex artery also had about 80-90% stenosis. Right coronary artery was a small to medium caliber vessel with 90% mid stenosis. Right femoral angiography showed patent common femoral, proximal SFA and profunda and therefore Mynx was used for hemostasis. Conscious sedation was performed using Versed and fentanyl. IMPRESSION 1. Multivessel coronary artery disease as described above. 2. Normal LV systolic function with ejection fraction of 65%. 3. Successful Mynx deployment for hemostasis. PLAN Will transfer her and consult surgery for possible coronary artery bypass graft. DAGO
--- NOTE | 2016-08-04 09:45 | NUR ---
TRANSFER Patient transferred to [facility] per orders. Family here and aware. Patient aware of transfer.
[2016-08-04] MEDS ORDERED: METO25TA6 PO (10:00)
[2016-08-04] MEDS ORDERED: ASPI81TA2 PO (10:00)
[2016-08-04] MEDS ORDERED: ATOR40TA PO (10:00)
--- NOTE | 2016-08-05 07:35 | DSPDOC ---
General Date Date DATE: 08/05/16 TIME: 07:17 Attending Physician Raul Guerrero MD Admitting Physician Raul Guerrero MD Consulting Physician Admitting Diagnosis Chest pain, elevated troponin Discharge Diagnosis NSTEMI Procedures DATE OF PROCEDURE August 04, 2016 The patient is a 46-year-old lady who was admitted with [id number] myocardial infarction and was referred for further evaluation by cardiac catheterization and possible intervention. Informed consent was obtained after explaining the procedure and the potential risks to the patient who agreed to proceed with the procedure. PROCEDURE 1. Left heart catheterization. 2. Coronary angiography. 3. Left ventriculography. TECHNIQUE The patient was prepped and draped in the usual sterile techniques. 1% lidocaine was used for local anesthesia. Using modified Seldinger technique, arterial access was obtained into the right femoral artery with placement of a 6-Kiswahili arterial sheath. Conscious sedation was performed using Versed and fentanyl. LEFT VENTRICULOGRAPHY Left ventriculography in single-plane JONES shallow projection showed normal LV systolic function with ejection fraction of about 65% with no mitral regurgitation or gradient across the aortic valve. LVEDP was about 8. CORONARY ANGIOGRAPHY Left main had about 20% stenosis. It bifurcated into left anterior descending and left circumflex arteries. Left anterior descending artery was a medium caliber vessel with diffuse disease with stenosis of about 70% in mid segment and 80% at the junction of the mid and distal thirds of the vessel. Diagonals were small with the second diagonal showing about 30% stenosis. Left circumflex artery had 80-90% proximal stenosis with ectatic region right distal to this lesion. Mid circumflex artery also had about 80-90% stenosis. Right coronary artery was a small to medium caliber vessel with 90% mid stenosis. Right femoral angiography showed patent common femoral, proximal SFA and profunda and therefore Mynx was used for hemostasis. Conscious sedation was performed using Versed and fentanyl. IMPRESSION 1. Multivessel coronary artery disease as described above. 2. Normal LV systolic function with ejection fraction of 65%. 3. Successful Mynx deployment for hemostasis. PLAN Will transfer her and consult surgery for possible coronary artery bypass graft. Laboratory Laboratory Tests Test 08/03/16 09:09 08/03/16 15:22 08/04/16 04:33 Troponin I 4.200ng/ml 4.620ng/ml 2.410ng/ml Chemistry Specimen Hemolysis < 15 < 15 < 15 White Blood Count 9.7T/MM3 Red Blood Count 4.39M/MM3 Hemoglobin 13.5GM/DL Hematocrit 40.2% Mean Corpuscular Volume 91.6UM3 Mean Corpuscular Hemoglobin 30.8UUG Mean Corpuscular Hemoglobin Concent 33.6GM/DL RDW Standard Deviation 42.2FL Platelet Count 324T/MM3 Mean Platelet Volume 8.7UM3 Neutrophils % (Manual) 52.0% Band Neutrophils % 2.0% Lymphocytes % (Manual) 38.0% Monocytes % (Manual) 4.0% Eosinophils % (Manual) 3.0% Basophils % (Manual) 1.0% Absolute Neutrophils (Manual) 5.0T/MM3 Band Neutrophils # 0.2T/MM3 Lymphocytes # (Manual) 3.7T/MM3 Monocytes # (Manual) 0.4T/MM3 Eosinophils # (Manual) 0.3T/MM3 Basophils # (Manual) 0.1T/MM3 Red Cell Morphology Comment Normal Turbidity < 20 Sodium Level 142MEQ/L Potassium Level 4.4MEQ/L Chloride Level 106MEQ/L Carbon Dioxide Level 26MEQ/L Anion Gap 10MEQ/L Blood Urea Nitrogen 17.0MG/DL Creatinine 0.8MG/DL Glomerular Filtration Rate Calc 77 BUN/Creatinine Ratio 21RATIO Glucose Level 112MG/DL Calculated Osmolality 276MOSM/KG Calcium Level 8.9MG/DL Magnesium Level 2.0MG/DL Icterus Index < 2 Laboratory Tests Test 08/04/16 04:33 White Blood Count 9.7T/MM3 (4.5-11.0) Red Blood Count 4.39M/MM3 (4.00-5.20) Hemoglobin 13.5GM/DL (12-16) Hematocrit 40.2% (36-46) Mean Corpuscular Volume 91.6UM3 (80-100) Mean Corpuscular Hemoglobin 30.8UUG (26-34) Mean Corpuscular Hemoglobin Concent 33.6GM/DL (31-37) RDW Standard Deviation 42.2FL (36.9-50.2) Platelet Count 324T/MM3 (130-400) Mean Platelet Volume 8.7UM3 (9.4-12.4) Neutrophils % (Manual) 52.0% (33-66) Band Neutrophils % 2.0% (0-6) Lymphocytes % (Manual) 38.0% (23-45) Monocytes % (Manual) 4.0% (0-9.0) Eosinophils % (Manual) 3.0% (0-4) Basophils % (Manual) 1.0% (0-2) Absolute Neutrophils (Manual) 5.0T/MM3 (1.8-7.7) Band Neutrophils # 0.2T/MM3 Lymphocytes # (Manual) 3.7T/MM3 (1-4.8) Monocytes # (Manual) 0.4T/MM3 (0-0.8) Eosinophils # (Manual) 0.3T/MM3 (0-0.5) Basophils # (Manual) 0.1T/MM3 (0-0.2) Red Cell Morphology Comment Normal Turbidity < 20 (0-20) Sodium Level 142MEQ/L (134-144) Potassium Level 4.4MEQ/L (3.6-5) Chloride Level 106MEQ/L (98-107) Carbon Dioxide Level 26MEQ/L (22-30) Anion Gap 10MEQ/L (5-15) Blood Urea Nitrogen 17.0MG/DL (7-17) Creatinine 0.8MG/DL (0.7-1.2) Glomerular Filtration Rate Calc 77 BUN/Creatinine Ratio 21RATIO (6-26) Glucose Level 112MG/DL (65-110) Calculated Osmolality 276MOSM/KG (261-280) Calcium Level 8.9MG/DL (8.4-10.2) Magnesium Level 2.0MG/DL (1.6-2.3) Icterus Index < 2 (0-7) Troponin I 2.410ng/ml (0-0.12) Chemistry Specimen Hemolysis < 15 (0-25) Radiology DATE OF EXAM: 08/02/16 ORDERING DOCTOR: MARTINA RODRIGUEZ APRN TYPE OF EXAM: CHEST 1 VIEW REASON FOR EXAM: chest pain Indication: ITS.REASON: chest pain PROCEDURE: CHEST 1 VIEW: Encounter: Initial Comparison: April 10, 2015 FINDINGS: The lungs are clear. There is no abnormal airspace opacity, pleural effusion or pneumothorax identified. The heart size, pulmonary vasculature and mediastinum are within normal limits. No significant skeletal abnormality is seen. IMPRESSION: No acute cardiopulmonary abnormality. History of Present Illness She presents to [facility] for evaluation of chest pain. This started last night. Feels like a tight band around her upper chest that does come and go. Got worse today and more persistent in nature. Chest pain did not radiate to any part of the body. Denies shortness of air and palpitations. She did get a little nauseated and diaphoretic about an hour before coming to ER. Upon arrival she is very anxious but does deny any chest pain or tightness at this time. Former smoker, quit 7 years ago. Hx of well controlled asthma and HTN. She has never seen a e commerce strategist in the past but she has a significant family history of heart disease. Her uncle did have a sudden cardiac arrest due to UT about 3 weeks ago, her father had bypass surgery at age 50. She has been using her inhaler at home to see if this will help but has not really made a difference. Objective Vital Signs Telemetry Rhythm: Sinus Rhythm Height (Feet): 5 Height (Inches): 4.00 Weight (Kilograms): 128.500 General Alert, Orientated x 3, Cooperative ENMT (Brief) mucosa moist Neck (Brief) NOT FOUND: JVD, carotid bruits Respiratory (Brief) clear all singer, equal bilaterally, NOT FOUND: rales, wheezes Cardiovascular (Brief) pedal edema, regular rate, regular rhythm, NOT FOUND: click, gallop, murmur, rub Abdomen (Brief) BS normo active x4, soft, NOT FOUND: tender Integumentary (Brief) dry, pink, warm Psychiatric (Brief) alert, attentive, normal affect, oriented EKG Initial EKG: Sinus tachycardia, HR 128, ST depression. Later EKG: Sinus rhythm. Last EKG: Sinus rhythm, LAD, LVH, ST-T changes Medications Current Medications Aspirin (ASA) 324 mg DAILY PO Last administered on 08/04/16 08:54; Start 08/03 at 09:00; Stop 08/04/16 at 12:04; Status DC Nitroglycerin 1 inch 1 inch Q6HR TOP ; Start 08/03/16 at 03:00; Stop 08/03/16 at 21:59; Status DC Sodium Chloride (Normal Saline IV) 1,000 ml @ 75 mls/hr [id number] IV Last administered on 08/04/16 03:02; Start 08/03/16 at 00:30; Stop 08/04/16 at 12:04 ; Status DC Hydromorphone HCl (Dilaudid) PRN CP Q1H PRN IV ; Start 08/03/16 at 00:30; Stop 08/04/16 at 12:04; Status DC Hydralazine HCl (Apresoline) 10 mg Q4HR PRN IV ; Start 08/03/16 at 00:30; Stop 08/04/16 at 12:04; Status DC Metoprolol Tartrate (Lopressor) 25 mg BIDWM PO Last administered on 08/04/16 08:49; Start 08/03/16 at 00:30; Stop 08/04/16 at 12:04; Status DC Lisinopril (Prinivil) 5 mg DAILY PO Last administered on 08/04/16 08:49; Start 08/03/16 at 09:00; Stop 08/04/16 at 12:04; Status DC Bupropion HCl (Wellbutrin Sr) 200 mg BID PO Last administered on 08/04/16 08: 49; Start 08/03/16 at 09:00; Stop 08/04/16 at 12:04; Status DC Clonazepam (Klonopin) 0.25 mg HS PO ; Start 08/03/16 at 22:00; Stop 08/03/16 at 22:00; Status DC Clonazepam 0.5 mg 0.5 mg HS PO Last administered on 08/03/16 21:19; Start at 22:00; Stop 08/04/16 at 12:04; Status DC Heparin Sodium/ Dextrose (Heparin Drip) 500 ml @ 38 mls/hr [id number] IV ; Start 08/03/16 at 08:00; Stop 08/03/16 at 10:10; Status DC Atorvastatin Calcium (LIPITOR 40 mg) 80 mg HS PO Last administered on 21:20; Start 08/03/16 at 22:00; Stop 08/04/16 at 12:04; Status DC Enoxaparin Sodium (Lovenox) 130 mg Q12H SQ Last administered on 08/03/16 21:21 ; Start 08/03/16 at 11:00; Stop 08/04/16 at 03:04; Status DC Budesonide/ Formoterol Fumarate (Symbicort 160/ 4.5) 2 puff BID ORAL INH Last administered on 08/04/16 09:03; Start 08/03/16 at 21:00; Stop 08/04/16 at 12:04 ; Status DC Albuterol Sulfate (Proventil 2.5 Mg/3 ml) 2.5 mg Q4HR PRN AEROSOL Last administered on 08/04/16 07:01; Start 08/03/16 at 15:00; Stop 08/04/16 at 12:04 ; Status DC Tiotropium [place] (Spiriva) 1 cap O ONCE ORAL INH ; Start 08/03/16 at 15:15; Stop 08/03/16 at 15:24; Status DC Non-Formulary Medication 1 DAILY INH Last administered on 08/04/16 08:59; Start 08/03/16 at 15:23; Stop 08/04/16 at 12:04; Status DC Device (Optichamber) 1 each O ONCE MC Last administered on 08/03/16 20:54; Start 08/03/16 at 21:00; Stop 08/04/16 at 07:22; Status DC Fentanyl (Fentanyl) 100 mcg STK-MED ONCE .ROUTE ; Start 08/04/16 at 07:35; Stop 08/04/16 at 07:36; Status DC Verapamil HCl (Verapamil) 5 mg STK-MED ONCE IV ; Start 08/04/16 at 07:36; Stop 08/04/16 at 07:37; Status DC Nitroglycerin (Nitroglycerin) 50 mg STK-MED ONCE IV ; Start 08/04/16 at 07:36; Stop 08/04/16 at 07:37; Status DC Heparin Sodium (Porcine) (Heparin Bolus) 10,000 unit STK-MED ONCE IV ; Start at 07:36; Stop 08/04/16 at 07:37; Status DC Midazolam HCl (Versed) 2 mg STK-MED ONCE .ROUTE ; Start 08/04/16 at 08:07; Stop 08/04/16 at 08:08; Status DC Atropine Sulfate (ATROPINE 1mg INJ) 0.5 mg Q5M PRN IV pulse<40 bpm AND symptomatic; Start 08/04/16 at 08:15; Stop 08/04/16 at 12:04; Status DC Acetaminophen (Tylenol Regular Strength) 325-650 mg Q5H PRN PO PAIN; Start at 08:15; Stop 08/04/16 at 12:04; Status DC Promethazine HCl (Phenergan) 12.5-25 mg Q6H PRN IV NAUSEA &/OR VOMITING; Start 08/04/16 at 08:15; Stop 08/04/16 at 12:04; Status DC Nitroglycerin (Nitrostat) 0.4 mg Q5MIN PRN SL ANGINA; Start 08/04/16 at 08:15; Stop 08/04/16 at 12:04; Status DC Magnesium Hydroxide (Mom) 30 ml DAILY PRN PO CONSTIPATION; Start 08/04/16 at 08 :15; Stop 08/04/16 at 12:04; Status DC Bisacodyl (Dulcolax) 5-10 mg DAILY PRN PO CONSTIPATION; Start 08/04/16 at 08:15 ; Stop 08/04/16 at 12:04; Status DC Al Hydroxide/Mg Hydroxide (Maalox) 30 ml Q3H PRN PO INDIGESTION; Start at 08:15; Stop 08/04/16 at 12:04; Status DC Lorazepam (Ativan) 0.5-1 mg Q4H PRN IV ANXIETY; Start 08/04/16 at 08:15; Stop 08/04/16 at 12:04; Status DC Metoclopramide HCl (REGLAN Inj) 5-10 mg Q6H PRN IV NAUSEA &/OR VOMITING; Start 08/04/16 at 08:15; Stop 08/04/16 at 12:04; Status DC Ondansetron HCl (Zofran) 4 mg Q6H PRN IV NAUSEA &/OR VOMITING; Start 08/04/16 at 08:15; Stop 08/04/16 at 12:04; Status DC Nitroglycerin (Nitro-Bid) 1 inch STK-MED ONCE TOP ; Start 08/04/16 at 08:21; Stop 08/04/16 at 08:22; Status DC Hospital Course Soo was admitted to CCU for observation on 08/02/16 due to slight elevation in Troponin (0.127) and ST depression in leads V5 & V6. Metoprolol 25mg BID, Lisinopril 5mg, ASA 81mg, statin, therapeutic Lovenox started. Nitro past q 6hrs for chest pain. Echo pending. RCAT for asthma management. The following troponin were: 1.330, 4.200, 4.620 and 2.410. She underwent heart cath on . She was found to have multivessel disease was referred to [facility] for bypass. Problems: (1) Elevated troponin Status: Acute (2) Chest pain Status: Acute (3) History of high cholesterol Status: Chronic (4) HTN (hypertension) Status: Chronic (5) Asthma exacerbation Status: Acute (6) Obesity Status: Chronic DVT Prophylaxis: Lovenox Code Status Full Code Home Meds Active Scripts Aspirin (Aspirin) 81 Mg Tab.chew, 81 MG PO DAILY for 30 Days, #30 TAB 11 Refills Prov:MARLIN SOTO FILING AND POLISHING SUPERVISOR 08/04/16 Metoprolol Tartrate (Metoprolol Tartrate) 25 Mg Tablet, 25 MG PO BIDWM for 30 Days, #60 TAB 11 Refills Prov:MARLIN SOTO FILING AND POLISHING SUPERVISOR 08/04/16 Atorvastatin Calcium (Lipitor) 40 Mg Tablet, 80 MG PO HS for 30 Days, #60 TAB 2 Refills Prov:MARLIN SOTO FILING AND POLISHING SUPERVISOR 08/04/16 Cetirizine HCl (Zyrtec) 10 Mg Tablet, 10 MG PO HS for 30 Days, TAB Prov:ELIF GUILLORY V FILING AND POLISHING SUPERVISOR 04/13/15 Reported Medications Lisinopril (Lisinopril) 10 Mg Tablet, 20 MG PO DAILY for HYPERTENSION, TAB 08/03/16 Oxymetazoline HCl (Anefrin) 15 Ml Mist, 2 SPRAY INH [id number] 08/03/16 Albuterol Sulfate (Ventolin HFA 90 mcg/actuation) 18 Gm Hfa.aer.ad, 1 PUFF ORAL INH Q4H Y for SHORTNESS OF AIR/WHEEZING, INHALER 08/03/16 Sodium Chloride (Deep Sea) 450 [place]/45 Ml [place], 1 SPRAY EA NOSTRIL PRN Y for NASAL CONGESTION, ML 08/03/16 Montelukast Sodium (Montelukast Sodium) 10 Mg Tablet, 10 MG PO DAILY, TAB Take 1 tablet, by mouth, one time a day (at bedtime). 08/03/16 Prednisone (Prednisone) 10 Mg Tablet, 10 MG PO WB Y for PRN ORDERS, TAB Take 1 tablet, by mouth, once a day with breakfast. 08/03/16 Clonazepam (Clonazepam) 0.5 Mg Tablet, 0.5 TAB PO HS, TAB 08/03/16 Tiotropium [place] (Spiriva Respimat) 4 Gm Mist.inhal, 1 PUFF ORAL INH DAILY, INHALER 05/24/16 Fluticasone Propionate (Flonase Allergy Relief 50 mcg/actuation Nasal) 9.9 Ml [place].susp 05/24/16 Bupropion HCl (Wellbutrin Sr) 100 Mg Tablet.er, 200 MG PO BID 05/24/16 Discontinued Reported Medications Montelukast Sodium (Singulair) 5 Mg Tablet, 1 TAB PO HS, TAB 05/24/16 Discharge Disposition Patient was transferred to [facility] in good and stable condition for referral for coronary artery bypass graft. MARLIN SOTO APRN August 05, 2016 07:20
== END 2016-08-04 09:45 | disposition short-term general hospital (02) | DRG 281 ==
LOC: ED 21:19 → EDHOLD 22:29 → CCU 23:00 → OBSVTOIN 08-03 12:26
PROVIDERS: ADMIT Internal Medicine Cardiovascular Disease; ATTEND Internal Medicine Cardiovascular Disease
PROC: 4A023N7 Measurement of Cardiac Sampling and Pressure, Left Heart, Percutaneous Approach (ICD-10-PCS; principal; 2016-08-04)
PROC: B2111ZZ Fluoroscopy of Multiple Coronary Arteries using Low Osmolar Contrast (ICD-10-PCS; 2016-08-04)
PROC: B2151ZZ Fluoroscopy of Left Heart using Low Osmolar Contrast (ICD-10-PCS; 2016-08-04)
DX: I21.4 Non-ST elevation (NSTEMI) myocardial infarction (principal); Z68.42 Body mass index [BMI] 45.0-49.9, adult; I25.10 Atherosclerotic heart disease of native coronary artery without angina pectoris; I10 Essential (primary) hypertension; J45.909 Unspecified asthma, uncomplicated; E66.01 Morbid (severe) obesity due to excess calories; Z87.891 Personal history of nicotine dependence; Z79.52 Long term (current) use of systemic steroids
CPT/HCPCS: 36415; 80048; 80053; 80061; 81001; 83036; 83735; 84443; 84484; 85007; 85025; 85027; 85379; 85730; 93005; 93458; 94640; 96372; 99218

== ENCOUNTER 2016-11-19 11:39 | Inpatient (IN) ==
[2016-11-19] MEDS ORDERED: ONDANSETRON 4 MG/2 ML INJECTION IVP ONE (12:22)
[2016-11-19] MEDS ORDERED: HYDROMORPHONE 2 MG/ML INJECTION IVP ONE ×2 (12:23→14:01)
--- NOTE | 2016-11-19 12:29 | Emergency Department Report ---
Abdominal Pain HPI - General Chief Complaint: Abdominal Pain Stated Complaint: amb pain Time Seen by Provider: 11/19/16 12:11 Source: patient Mode of arrival: wheelchair Limitations: no limitations - History of Present Illness HPI narrative: Pt presents with mid lower abd pain onset after eating last night. Pt has tried phenergan and Mag citrate for relief. Pt states she has had this in the past and it normally resolves on its own. Pt reports nausea and vomiting today, had a BM earlier today that she states had hard pieces as well as loose diarrhea type stool. Pt reports multiple hernia repairs and an abdominal reconstruction surgery after a c section in 2003. Onset (ago): hour(s) Consistency: intermittent Location: LUQ, RUQ Severity: moderate Quality: stabbing Radiation: back Relieving factors: nothing Exacerbating factors: eating, vomiting Treatments prior to arrival: other (Phenergan, Mag citrate) - Related Data Home Medications Medication Instructions Recorded Confirmed Albuterol Sulfate [Ventolin Hfa] 2 puff ORAL INH Q4H PRN #0 inhaler 08/03/16 Montelukast Sodium 10 mg PO HS #0 tab 08/03/16 11/19/16 clonazePAM [Clonazepam] 0.5 tab PO HS PRN #0 tab 08/03/16 11/19/16 Acetaminophen 650 mg PO Q4HR PRN 09/01/16 11/19/16 Atorvastatin [Lipitor] 80 mg PO HS 09/01/16 11/19/16 Nitroglycerin 0.4 mg SL Q5MIN3 PRN 09/01/16 11/19/16 Flonase (Fluticasone) 50 mcg nasal 2 spray INTRANASAL BID g 09/03/16 11/19/16 spray Lasix (Furosemide) 20 mg tablet 40 mg PO BID tab 09/03/16 11/19/16 Spiriva Respimat (tiotropium 2 puff INH DAILY g 09/03/16 11/19/16 bromide) 2.5 mcg/actuation, inhalation Symbicort (Budesonide 160 1 puff INH BID g 09/03/16 11/19/16 mcg-Formoterol 4.5 mcg)/actuation aerosol inhaler aspirin 81 mg tablet,delayed 81 mg PO DAILY tab 09/03/16 11/19/16 release bupropion HCl SR 200 mg tablet,12 200 mg PO BID 09/03/16 11/19/16 hr sustained-release lisinopril 2.5 mg tablet 2.5 mg PO DAILY tab 09/03/16 11/19/16 potassium chloride ER 10 mEq 10 meq PO DAILY tab 09/03/16 11/19/16 tablet,extended release Cetirizine HCl [Zyrtec] 10 mg PO HS 11/19/16 11/19/16 Magnesium Citrate 100 mg PO HS 11/19/16 11/19/16 Previous Rx's Medication Instructions Recorded Metoprolol Tartrate 25 mg PO BIDWM 30 Days #60 tab 08/04/16 Allergies Allergy/AdvReac Type Severity Reaction Status Date / Time meperidine Allergy Severe HALLUCINATI Verified 11/19/16 12:42 ONS morphine Allergy Severe HYPOTENSION Verified 11/19/16 12:42 nerissa Allergy Unknown SWELLING Verified 11/19/16 12:42 Review of Systems All systems: reviewed and negative except as stated Gastrointestinal: Reports: abdominal pain, nausea, vomiting, constipation. Denies: diarrhea Physical Exam - Limitations Limitations: no limitations - General General appearance: alert, in distress - Normal Exams: Head:: Normocephalic without trauma Eyes:: Pupils are PERRLA w/ EOMI Neck:: Full range of motion Chest/Respirations:: Clear all singer, with good airflow, and symmetry bilaterally Cardiovascular:: Regular rate and rhythm, Pulses 2+ all extremities Musculoskeletal:: No tenderness, or deformity noted, good range of motion, all extremities Integumentary:: No rashes Neurological:: Patient is alert, and oriented Psychiatric:: Patient exhibits, appropriate attention, emotion and affect - Abdominal Exam Abdominal exam: Present: distention, tenderness, diminished bowel sounds, hypoactive bowel sounds Abdominal tenderness: Present: RLQ, LLQ, suprapubic, diffuse, moderate Course - Consultations Consultation #1: Amber Time: 14:50 Consultation #2: Mame Time: 15:10 (admit surgical) Vital Signs Temperature 98.2 F 11/19/16 11:43 Pulse Rate 106 H 11/19/16 11:43 Respiratory Rate 20 11/19/16 11:43 Blood Pressure 149/103 H 11/19/16 11:43 Pulse Oximetry 97 11/19/16 11:43 Temperature 98.2 F 11/19/16 11:43 Pulse Rate 106 H 11/19/16 11:43 Respiratory Rate 20 11/19/16 11:43 Blood Pressure 149/103 H 11/19/16 11:43 Pulse Oximetry 97 11/19/16 11:43 Abdominal Pain - [facility] Narrative Medical decision making narrative: Pt presents with abd pain since last night. She has an extensive history of multiple hernia repairs and an abd reconstruction surgery post c section in 2003. CBC results within parameters. CMP shows a BUN of 21. Lipase is normal. CT abd w/ contrast shows a moderate to high grade small bowel obstructio. Dr Clark consulted. Will admit to hospitalist for further treatment. - Differential Diagnosis Differential diagnosis: Likely: abdominal pain, constipation, diverticulitis, gastroenteritis, pancreatitis, small bowel obstruction - Lab Data Attestation: I reviewed the patient's lab results. Result diagrams: 11/19/16 12:50 11/19/16 12:50 - Radiology Data Attestation: I reviewed the patient's radiology results. per Dr Thurman Disposition Clinical Impression: Small bowel obstruction due to adhesions [place] [facility] Condition: Stable for Transport Prescriptions: No Action clonazePAM [Clonazepam] 0.5 tab PO HS PRN #0 tab PRN Reason: Prn Orders Montelukast Sodium 10 mg PO HS #0 tab Albuterol Sulfate [Ventolin Hfa] 2 puff ORAL INH Q4H PRN #0 inhaler PRN Reason: SHORTNESS OF AIR/WHEEZING Metoprolol Tartrate 25 mg PO BIDWM 30 Days #60 tab Acetaminophen 650 mg PO Q4HR PRN PRN Reason: Pain Nitroglycerin 0.4 mg SL Q5MIN3 PRN PRN Reason: Chest Pain Magnesium Citrate 100 mg PO HS Atorvastatin [Lipitor] 80 mg PO HS Cetirizine HCl [Zyrtec] 10 mg PO HS potassium chloride ER 10 mEq tablet,extended release 10 meq PO DAILY tab Symbicort (Budesonide 160 mcg-Formoterol 4.5 mcg)/actuation aerosol inhaler 1 puff INH BID g bupropion HCl SR 200 mg tablet,12 hr sustained-release 200 mg PO BID Spiriva Respimat (tiotropium bromide) 2.5 mcg/actuation, inhalation 2 puff INH DAILY g lisinopril 2.5 mg tablet 2.5 mg PO DAILY tab Lasix (Furosemide) 20 mg tablet 40 mg PO BID tab aspirin 81 mg tablet,delayed release 81 mg PO DAILY tab Flonase (Fluticasone) 50 mcg nasal spray 2 spray INTRANASAL BID g Referrals: Jamil Bojorquez DO [Family Provider] - Time of Disposition: 15:15 - Seen By: midlevel
[2016-11-19] MEDS ORDERED: NS 1,000 ML IV SCH (12:30)
[2016-11-19] MEDS ORDERED: NS 100 ML ONE (13:19)
[2016-11-19] MEDS ORDERED: SALINE FLUSH 10ml SYRINGE ONE (13:19)
[2016-11-19] MEDS ORDERED: IOHEXOL 300mg/ml 100ml INJECTION ONE (13:19)
--- OUTSIDE RECORDS SUMMARY | 2016-11-19 13:44 | External Medical Summary | Referral Summary ---
:1970 Author Organization [facility] Doss, [address] [place] [phone] Care Team Providers Name Role Phone Jamil Bojorquez Primary Care Physician Encounter VC Date(s): 04/10/15 - 04/10/15 [facility]oss [address] [place] [phone] [place] Discharge Disposition: 01-Home or Self Care Attending Physician: Jamil Bojorquez DO Admitting Physician: Jamil Bojorquez DO Vital Signs Most recent to oldest [Reference Range]: 1 Temperature Oral [35.8-37.3 degC] 36.6 degC (04/10/15 9:14 AM) Peripheral Pulse Rate [60-100 bpm] 103 bpm *HI* (04/10/15 11:00 AM) Respiratory Rate [14-20 br/min] 18 br/min (04/10/15 11:00 AM) Blood Pressure [90-140/60-90 mmHg] 140/80 mmHg (04/10/15 9:14 AM) SpO2 98 % (04/10/15 11:00 AM) Problem List Condition Effective Dates Status Health Status Informant Allergy rhinitis(Confirmed)1 Active Asthma(Confirmed) 2002 Resolved Chicken pox(Confirmed) Active Depression(Confirmed) Active Dyslipidemia(Confirmed) Active High cholesterol(Confirmed) Active Hypertension(Confirmed) Resolved Migraine headaches(Confirmed)2 Active Overweight(Confirmed) Active Pneumonia(Confirmed) Active Seasonal allergies(Confirmed) Resolved Skin conditions(Confirmed) Active Sleep disturbance(Confirmed) Resolved Tension headaches(Confirmed)3 Active Tobacco user(Confirmed) Active patient 1ALLERGIC RHINITIS CAUSE UNSPECIFIED.[id number] Allergies, Adverse Reactions, Alerts Substance Reaction Severity Status morphine1 Active 1hypotension and itching Medications Advair Diskus 250 mcg-50 mcg inhalation powder See Instructions, INHALE ONE PUFF BY MOUTH TWICE A DAY, # 60 unknown unit, 3 Refill(s), eRx: [facility] #[id number], INHALE ONE PUFF BY MOUTH TWICE A DAY Start Date: 04/05/15 Status: OrderedAdvair Diskus 250 mcg-50 mcg inhalation powder See Instructions, INHALE ONE PUFF BY MOUTH TWICE A DAY, # 60 unknown unit, 5 Refill(s), eRx: [facility] #[id number], INHALE ONE PUFF BY MOUTH TWICE A DAY Start Date: 12/22/13 Status: OrderedAdvair Diskus 500 mcg-50 mcg inhalation powder 1 puffs, Inhalation, BID, # 60 Each, 1 Refill(s), Pharmacy: [facility] # [id number] Start Date: 04/08/15 Stop Date: 06/07/15 Status: OrderedbuPROPion 200 mg/12 hours (SR) oral tablet, extended release 1 tabs, Oral, BID, # 180 tabs, 1 Refill(s), Pharmacy: [facility] #[id number], 1 tabs Oral BID,x90 days Start Date: 12/14/13 Stop Date: 06/12/14 Status: OrderedclonazePAM 0.5 mg oral tablet 0.5 mg 1 tabs, Oral, Bedtime (once a day), n carlos, # 30 tabs, 0 Refill(s) Start Date: 04/08/15 Status: Orderedlisinopril 10 mg oral tablet 20 mg 2 tabs, Oral, Daily, X 90 days, # 180 tabs, 3 Refill(s), Pharmacy: [facility] #[id number], 2tabs Oral Daily,x90 days Start Date: 04/08/15 Stop Date: 04/02/16 Status: OrderedMucinex 1,200 mg, Oral, q12hr, for congestion, 0 Refill(s) Start Date: 04/17/14 Status: OrderedpredniSONE 10 mg oral tablet See Instructions, 5 tab daily for 3 days, then 4 tab daily for 3 days, then 3 tab daily for 3 days, then 2 tab daily for 3 days, then one tab daily for 3 days , # 45 tabs, 0 Refill(s), Pharmacy: [facility] #[id number], 5 tab daily for 3 days, then 4... Start Date: 04/08/15 Stop Date: 04/23/15 Status: OrderedSingulair 10 mg oral tablet See Instructions, TAKE ONE TABLET BY MOUTH EVERY EVENING, # 30 tabs, 5 Refill(s) , eRx: [facility] #[id number], TAKE ONE TABLET BY MOUTH EVERY EVENING Start Date: 04/20/14 Status: OrderedVentolin HFA 90 mcg/inh inhalation aerosol See Instructions, INHALE TWO PUFFS BY MOUTH EVERY 4 HOURS NEEDED FOR WHEEZING , # 18 unknown unit,2 Refill(s), eRx: [facility] #[id number], INHALE TWO PUFFS BY MOUTH EVERY 4 HOURS NEEDED FOR WHEEZING Start Date: 04/05/15 Status: OrderedZithromax Z-Phong 250 mg oral tablet 1 packets, Oral, Daily, as directed on package labeling, X 5 days, # 6 tabs, 0 Refill(s), Pharmacy: [facility] #[id number], 1 packets Oral Daily,x5 days, Instr:as directed on package labeling Start Date: 04/08/15 Stop Date: 04/13/15 Status: Ordered Results No data available for this section Immunizations Vaccine Date Refusal Reason tetanus/diphth/pertuss (Tdap) adult/adol 05/14/14 Procedures Procedure Date Related Diagnosis Body Site Hernia repairs MULT. REPAIRS, Social History Social History Type Response Smoking Status Former smoker; Type: Cigarettes; Tobacco use per day: 1 Pack; Number of years: 10 Assessment and Plan Extracted from: Title: Asthma exacerbation Author: Jamil Bojorquez DO Date: 04/10/15 Assessment/Plan Moderate persistent intrinsic asthma with exacerbation 1. Clinical finding consistent with moderate persistent asthma with acute exacerbation. 2. At this point she has maximized her outpatient medication treatment. With the level of air trapping appreciated today, she would benefit from inpatient management.Patient voiced understanding and is agreeable. 3.Patientwas discussed with the hospitalist who agrees with the admission. 4. CXR was negative. 5. DuoNeb breathing treatmentgiven prior to hospital transfer. Ordered: Office Visit Level 4 Est 17314 XR Chest 2 Views
--- OUTSIDE RECORDS SUMMARY | 2016-11-19 13:44 | External Medical Summary | Referral Summary ---
:1970 Author Organization [facility] Doss, [address] [place] [phone] Care Team Providers Name Role Phone Jamil Bojorquez Primary Care Physician Encounter VC Date(s): 04/08/15 - 04/08/15 [facility]oss [address] [place] [phone] [place] Discharge Disposition: 01-Home or Self Care Attending Physician: Jamil Bojorquez DO Admitting Physician: Jamil Bojorquez DO Vital Signs Most recent to oldest [Reference Range]: 1 Temperature Tympanic [36.6-38.1 degC] 37.1 degC (04/08/15 10:04 AM) Peripheral Pulse Rate [60-100 bpm] 76 bpm (04/08/15 10:04 AM) Blood Pressure [90-140/60-90 mmHg] 151/110 mmHg *HI* (04/08/15 10:04 AM) Problem List Condition Effective Dates Status Health Status Informant Allergy rhinitis(Confirmed)1 Active Asthma(Confirmed) 2002 Resolved Chicken pox(Confirmed) Active Depression(Confirmed) Active Dyslipidemia(Confirmed) Active High cholesterol(Confirmed) Active Hypertension(Confirmed) Resolved Migraine headaches(Confirmed)2 Active Overweight(Confirmed) Active Pneumonia(Confirmed) Active Seasonal allergies(Confirmed) Resolved Skin conditions(Confirmed) Active Sleep disturbance(Confirmed) Resolved Tension headaches(Confirmed)3 Active Tobacco user(Confirmed) Active patient 1ALLERGIC RHINITIS CAUSE UNSPECIFIED.[id number] Allergies, Adverse Reactions, Alerts Substance Reaction Severity Status morphine1 Active 1hypotension and itching Medications Advair Diskus 250 mcg-50 mcg inhalation powder See Instructions, INHALE ONE PUFF BY MOUTH TWICE A DAY, # 60 unknown unit, 3 Refill(s), eRx: [facility] #[id number], INHALE ONE PUFF BY MOUTH TWICE A DAY Start Date: 04/05/15 Status: OrderedAdvair Diskus 250 mcg-50 mcg inhalation powder See Instructions, INHALE ONE PUFF BY MOUTH TWICE A DAY, # 60 unknown unit, 5 Refill(s), eRx: [facility] #[id number], INHALE ONE PUFF BY MOUTH TWICE A DAY Start Date: 12/22/13 Status: OrderedAdvair Diskus 500 mcg-50 mcg inhalation powder 1 puffs, Inhalation, BID, # 60 Each, 1 Refill(s), Pharmacy: [facility] # [id number] Start Date: 04/08/15 Stop Date: 06/07/15 Status: OrderedbuPROPion 200 mg/12 hours (SR) oral tablet, extended release 1 tabs, Oral, BID, # 180 tabs, 1 Refill(s), Pharmacy: [facility] #[id number], 1 tabs Oral BID,x90 days Start Date: 12/14/13 Stop Date: 06/12/14 Status: OrderedclonazePAM 0.5 mg oral tablet 0.5 mg 1 tabs, Oral, Bedtime (once a day), n dillons, # 30 tabs, 0 Refill(s) Start Date: 04/08/15 Status: Orderedlisinopril 10 mg oral tablet 20 mg 2 tabs, Oral, Daily, X 90 days, # 180 tabs, 3 Refill(s), Pharmacy: [facility] #[id number], 2tabs Oral Daily,x90 days Start Date: 04/08/15 [...] , # 45 tabs, 0 Refill(s), Pharmacy: [facility] #[id number], 5 tab daily for 3 days, then 4... Start Date: 04/08/15 Stop Date: 04/23/15 Status: OrderedSingulair 10 mg oral tablet See Instructions, TAKE ONE TABLET BY MOUTH EVERY EVENING, # 30 tabs, 5 Refill(s) , eRx: [facility] #[id number], TAKE ONE TABLET BY MOUTH EVERY EVENING Start Date: 04/20/14 Status: OrderedVentolin HFA 90 mcg/inh inhalation aerosol See Instructions, INHALE TWO PUFFS BY MOUTH EVERY 4 HOURS NEEDED FOR WHEEZING , # 18 unknown unit,2 Refill(s), eRx: [facility] #[id number], INHALE TWO PUFFS BY MOUTH EVERY 4 HOURS NEEDED FOR WHEEZING Start Date: 04/05/15 Status: OrderedZithromax Z-Phong 250 mg oral tablet 1 packets, Oral, Daily, as directed on package labeling, X 5 days, # 6 tabs, 0 Refill(s), Pharmacy: [facility] #[id number], 1 packets Oral Daily,x5 days, Instr:as directed [...] 10 Assessment and Plan Extracted from: Title: Bacterial bronchitis, asthma exacerbation Author: Jamil Bojorquez DO Date : 04/08/15 Assessment/Plan Acute bacterial bronchitis 1. Zithromax taken as directed for 5 days. 2. Continue with Tessalon Perles as needed for coughing. We will refill the medication as needed. Ordered: Office Visit Level 4 Est 06781 Moderate persistent intrinsic asthma with exacerbation 1. Increase the Advair to 500/50, one puff twice a day until symptoms are better controlled. 2. Taper dose prednisone over 15 days. 3. Rescue inhaler 2 puffs every 4 hours for the next 24 hours and then every 4 hours as needed. 4. Clonazepam was refilled for history of increased anxiety and insomnia secondary to steroid use. Prescription given for 30 tablets without refill. 5. Follow-up if no improvement in the next 4 days. Ordered: azithromycin, 1 packets, Oral, Daily, as directed on package labeling, X 5 days, # 6 tabs, 0 Refill(s), Pharmacy: [facility] #[id number], 1 packets Oral Daily,x5 days,Instr:as directed on package labeling fluticasone-salmeterol, 1 puffs, Inhalation, BID, # 60 Each, 1 Refill(s), Pharmacy: [facility] #[id number] predniSONE, See Instructions, 5 tab daily for 3 days, then 4 tab daily for 3 days, then 3 tab daily for 3 days, then 2 tab daily for 3 days, then one tab daily for 3 days, # 45 tabs, 0 Refill(s), Pharm acy: [facility] #[id number], 5 tab daily for 3 days, then 4... Office Visit Level 4 Est 88128 Orders: clonazePAM, 0.5 mg 1 tabs, Oral, Bedtime (once a day), reed gonzalez, # 30 tabs, 0 Refill(s) lisinopril, 20 mg 2 tabs, Oral, Daily, X 90 days, # 180 tabs, 3 Refill(s), Pharmacy: [facility] #[id number], 2 tabs Oral Daily,x90 days
--- OUTSIDE RECORDS SUMMARY | 2016-11-19 13:44 | External Medical Summary | Referral Summary ---
:1970 Author Organization [facility]oss, [address] [place] [phone] Care Team Providers Name Role Phone Jamil Bojorquez Primary Care Physician Encounter VC Date(s): 10/22/14 - 10/22/14 [facility]oss [address] [place] [phone] [place] Discharge Diagnosis: Acute asthmatic bronchitis Discharge Diagnosis: Anxiety Discharge Disposition: 01-Home or Self Care Attending Physician: Jamil Bojorquez DO Admitting Physician: Jamil Bojorquez DO Vital Signs Most recent to oldest [Reference Range]: 1 Temperature Tympanic [36.6-38.1 degC] 36.1 degC *LOW* (10/22/14 1:56 PM) Peripheral Pulse Rate [60-100 bpm] 68 bpm (10/22/14 1:56 PM) Blood Pressure [90-140/60-90 mmHg] 138/72 mmHg (10/22/14 1:56 PM) SpO2 97 % (10/22/14 1:56 PM) Problem List Condition Effective Dates Status Health Status Informant Allergy rhinitis(Confirmed)1 Active Asthma(Confirmed) 2002 Resolved Chicken pox(Confirmed) Active Dyslipidemia(Confirmed) Active High cholesterol(Confirmed) Active Hypertension(Confirmed) Resolved Migraine headaches(Confirmed)2 Active Depression(Confirmed) Active Overweight(Confirmed) Active Pneumonia(Confirmed) Active Seasonal allergies(Confirmed) Resolved Skin conditions(Confirmed) Active Sleep disturbance(Confirmed) Resolved Tension headaches(Confirmed)3 Active Tobacco user(Confirmed) Active patient 1ALLERGIC RHINITIS CAUSE UNSPECIFIED.[id number] Allergies, Adverse Reactions, Alerts Substance Reaction Severity Status morphine1 Active 1hypotension and itching Medications amLODIPine 2.5 mg oral tablet 2.5 mg 1 tabs, Oral, Daily, 0 Refill(s) Start Date: 04/15/15 Status: Orderedbudesonide 0.5 mg/2 mL inhalation suspension 0.5 mg 2 mL, NEB, BID, # 120 mL, 0 Refill(s), Pharmacy: [facility] #[id number] , 2 mL NEB BID Start Date: 04/18/15 Status: OrderedbuPROPion 200 mg/12 hours (SR) oral tablet, extended release 1 tabs, Oral, BID, # 180 tabs, 1 Refill(s), Pharmacy: [facility] #[id number], 1 tabs Oral BID,x90 days Start Date: 12/14/13 Stop Date: 06/12/14 Status: OrderedDuoNeb 0.5 mg-2.5 mg/3 mL inhalation solution 3 mL, Inhalation, QID, # 360 mL, 2 Refill(s), Pharmacy: [facility] #[id number] Start Date: 04/18/15 Status: OrderedKlonoPIN 1 mg oral tablet 1 mg 1 tabs, Oral, TID, as needed for anxiety, air hunger, 0 Refill(s) Start Date: 04/15/15 Status: Orderedlisinopril 10 mg oral tablet 20 mg 2 tabs, Oral, Daily, X 90 days, # 180 tabs, 3 Refill(s), Pharmacy: [facility] #[id number], 2tabs Oral Daily,x90 days Start Date: 04/08/15 Stop Date: 04/02/16 Status: Orderedomeprazole 40 mg oral delayed release capsule 40 mg 1 caps, Oral, BID, 0 Refill(s) Start Date: 04/15/15 Status: OrderedpredniSONE 10 mg oral tablet See Instructions, 40mg BID x 3 days then, 60mg daily x 3 days then, 50mg daily x 3 days then 40mgdaily x 3 days then 30mg daily x 3 days then 20mg daily x 3 days then 10mg daily x 3 days then stop, 0 Refill(s) Start Date: 04/15/15 Stop Date: 05/04/15 Status: OrderedTums 500 1,250 mg, Chewed, TID, as needed for GERD, 0 Refill(s) Start Date: 04/15/15 Status: OrderedTussionex PennKinetic 10 mg-8 mg/5 mL oral suspension, extended release 5 mL, Oral, q12hr, as needed for cough, 0 Refill(s) Start Date: 04/15/15 Status: OrderedVentolin HFA 90 mcg/inh inhalation aerosol See Instructions, INHALE TWO PUFFS BY MOUTH EVERY 4 HOURS NEEDED FOR WHEEZING , # 18 unknown unit,2 Refill(s), eRx: [facility] #[id number], INHALE TWO PUFFS BY MOUTH EVERY 4 HOURS NEEDED FOR WHEEZING Start Date: 04/05/15 Status: OrderedWellbutrin SR 200 mg/12 hours oral tablet, extended release 200 mg 1 tabs, Oral, BID, # 180 tabs, 1 Refill(s), Pharmacy: [facility] # [id number], 1 tabs Oral BID,x90 days Start Date: 04/19/15 Stop Date: 10/16/15 Status: OrderedWellbutrin SR 200 mg/12 hours oral tablet, extended release 200 mg 1 tabs, Oral, BID, # 60 tabs, 6 Refill(s), Pharmacy: [facility] # [id number], 1 tabs Oral BID,x30 days Start Date: 04/18/15 Stop Date: 11/14/15 Status: OrderedZyrTEC 10 mg oral tablet 10 mg 1 tabs, Oral, Daily, 0 Refill(s) Start Date: 04/15/15 Status: Ordered Results No data available for this section Immunizations Vaccine Date Refusal Reason tetanus/diphth/pertuss (Tdap) adult/adol 05/14/14 Procedures Procedure Date Related Diagnosis Body Site Hernia repairs MULT. REPAIRS, Social History Social History Type Response Smoking Status Former smoker; Type: Cigarettes; Tobacco use per day: 1 Pack; Number of years: 10 Assessment and Plan Extracted from: Title: Office Visit Note Author: Jamil Bojorquez DO Date: 10/22/14 Assessment/Plan Acute asthmatic bronchitis 1. Continue with Advair 250/50 over 50, one puff twice a day. 2. Continue with the Singulair 10 mg daily. 3. Continue with ldqw-nuo-ajyojcf antihistamine one tablet daily. 4. Taper dose prednisone over 15 days. 5. Continue with rescue inhaler, 2 puffs every 4 hours as needed. 6. Z-Phong take as directed for 5 days. 7. Follow-up if worsening presentation are no improvement in the next couple of days. Ordered: azithromycin, 1 packets, Oral, Daily, as directed on package labeling, X 5 days, # 6 tabs, 0 Refill(s), Pharmacy: [facility] #[id number], 1 packets Oral Daily,x5 days,Instr:as directed on package labeling predniSONE, See Instructions, 5 tabs for 3 days, then 4 tabs for 3 days, then 3 tabs for 3 days, then 2 tab for 3 days, then one tab for 3 days, # 45 tabs, 0 Refill(s), Pharmacy: [facility] #[id number], 5 tabs for 3 days, then 4 tabs for 3 days, then 3 tabs f... Office Visit Level 4 Est 69967 Anxiety 1. Clonazepam was refilled to use mainly when she is on the steroids for asthma management. 2. If she is needing to use an anxiolytic beyond the treatment with steroids then we may consider an SSRI. 6. Follow-up if worsening presentation are no improvement in the next couple of days. Ordered: Office Visit Level 4 Est [id number] Orders: benzonatate, 200 mg 1 caps, Oral, TID, X 10 days, # 30 caps, 0 Refill (s), Pharmacy: [facility] #[id number], 1 caps Oral TID,x10 days clonazePAM, 0.5 mg 1 tabs, Oral, Bedtime (once a day), n luisloalma, # 30 tabs, 0 Refill(s)
--- OUTSIDE RECORDS SUMMARY | 2016-11-19 13:44 | External Medical Summary | Referral Summary ---
:1970 Author Organization [facility]oss, [address] [place] [phone] Care Team Providers Name Role Phone Jamil Bojorquez Primary Care Physician Encounter VC Date(s): 04/18/15 - 04/18/15 [facility] [address] [place] [phone] [place] Discharge Diagnosis: Depression Discharge Diagnosis: Uncontrolled severe persistent asthma Discharge Disposition: 01-Home or Self Care Attending Physician: Jamil Bojorquez DO Admitting Physician: Jamil Bojorquez DO Vital Signs Most recent to oldest [Reference Range]: 1 Temperature Tympanic [36.6-38.1 degC] 37.2 degC (04/18/15 3:08 PM) Peripheral Pulse Rate [60-100 bpm] 115 bpm *HI* (04/18/15 3:08 PM) Blood Pressure [90-140/60-90 mmHg] 122/90 mmHg (04/18/15 3:08 PM) SpO2 97 % (04/18/15 3:08 PM) Problem List Condition Effective Dates Status Health Status Informant Allergy rhinitis(Confirmed)1 Active Asthma(Confirmed) 2002 Resolved Chicken pox(Confirmed) Active Dyslipidemia(Confirmed) Active High cholesterol(Confirmed) Active Hypertension(Confirmed) Resolved Migraine headaches(Confirmed)2 Active Depression(Confirmed) Active Overweight(Confirmed) Active Pneumonia(Confirmed) Active Seasonal allergies(Confirmed) Resolved Skin conditions(Confirmed) Active Sleep disturbance(Confirmed) Resolved Tension headaches(Confirmed)3 Active Tobacco user(Confirmed) Active patient 1ALLERGIC RHINITIS CAUSE UNSPECIFIED.[id number] Allergies, Adverse Reactions, Alerts Substance Reaction Severity Status morphine1 Active 1hypotension and itching Medications amLODIPine 2.5 mg oral tablet 2.5 mg 1 tabs, Oral, Daily, 0 Refill(s) Start Date: 04/15/15 Status: Orderedbudesonide 0.5 mg/2 mL inhalation suspension 0.5 mg 2 mL, NEB, BID, # 120 mL, 0 Refill(s), Pharmacy: [facility] #[id number] , 2 mL NEB BID Start Date: 04/18/15 Status: OrderedbuPROPion 200 mg/12 hours (SR) oral tablet, extended release 1 tabs, Oral, BID, # 180 tabs, 1 Refill(s), Pharmacy: [facility] #[id number], 1 tabs Oral BID,x90 days Start Date: 12/14/13 Stop Date: 06/12/14 Status: OrderedDuoNeb 0.5 mg-2.5 mg/3 mL inhalation solution 3 mL, Inhalation, QID, # 360 mL, 2 Refill(s), Pharmacy: [facility] #[id number] Start Date: 04/18/15 Status: OrderedKlonoPIN 1 mg oral tablet 1 mg 1 tabs, Oral, TID, as needed for anxiety, air hunger, 0 Refill(s) Start Date: 04/15/15 Status: Orderedlisinopril 10 mg oral tablet 20 mg 2 tabs, Oral, Daily, X 90 days, # 180 tabs, 3 Refill(s), Pharmacy: [facility] #[id number], 2tabs Oral Daily,x90 days Start Date: 04/08/15 [...] , # 18 unknown unit,2 Refill(s), eRx: [facility] #[id number], INHALE TWO PUFFS BY MOUTH EVERY 4 HOURS NEEDED FOR WHEEZING Start Date: 04/05/15 Status: OrderedWellbutrin SR 200 mg/12 hours oral tablet, extended release 200 mg 1 tabs, Oral, BID, # 60 tabs, 6 Refill(s), Pharmacy: [facility] # [id number], 1 tabs Oral BID,x30 days Start Date: [...] 10 Assessment and Plan Extracted from: Title: Severe asthma exacerbation Author: Jamil Bojorquez DO Date: 04/18/15 Assessment/Plan Depression 1. She was restarted on Wellbutrin 200 mg daily for one week and then increasing to twice a day. 2. Follow-up in one month for reevaluation. Uncontrolled severe persistent asthma 1. She continues to have difficulty with breathing although she is much improved compared to last week. 2. Continue with current regimen of Taper dose prednisone. Continue with Advair. Continue with DuoNeb and albuterol. 3. Recommended referral to bilingual account manager for which she agreed. 4. We will excuse her from work for an additional week and reevaluate her prior to clearance for return to work. Orders: budesonide, 0.5 mg 2 mL, NEB, BID, # 120 mL, 0 Refill(s), Pharmacy: [facility] #[id number], 2 mL NEB BID buPROPion, 200 mg 1 tabs, Oral, BID, # 60 tabs, 6 Refill(s), Pharmacy: [facility] #[id number], 1 tabs Oral BID,x30 days ipratropium-albuterol, 3 mL, Inhalation, QID, # 360 mL, 2 Refill(s), Pharmacy : [facility] #[id number]
--- NOTE | 2016-11-19 14:09 | CT Scan Report ---
Indication: abd pain, multiple hernia repair, abd reconstruction PROCEDURE: CT abdomen pelvis w con: Encounter: Initial Comparison: None Technique: Axial CT images were performed through the abdomen and pelvis after the administration of intravenous contrast. Coronal and sagittal two-dimensional reformats. Automated Exposure Control and Iterative Reconstruction dose reducing techniques were utilized. Contrast: Omnipaque 300 100 mL Findings: Small subpleural 4 mm nodule in the right lower lobe. Subpleural 6 mm nodule in the left lower lobe on image #8. Calcified granuloma in the right lower lobe near the diaphragm on axial image #12. Changes of prior sternotomy noted. The liver appears normal. No bile duct dilatation. The gallbladder is distended but otherwise unremarkable. The spleen, pancreas and adrenal glands are within normal limits. Right renal cyst arising from the lower pole. Kidneys are otherwise normal. Retroaortic left renal vein noted incidentally. No abdominal or pelvic lymphadenopathy. The bladder is normal. Uterus and ovaries are unremarkable. No free fluid. Sigmoid diverticulosis without evidence of acute diverticulitis. Colon is totally decompressed. Distal small bowel is decompressed. There are multiple dilated small bowel loops in the anterior abdomen some fecalization. Bowel loops measure up to 4 cm in diameter. There are prior ventral repair changes with curvilinear densities that could represent mesh. Somewhat gradual transition to decompressed small bowel seen in the ileum on coronal images 17 through 20 in the right anterior abdomen. Impression: 1. Small bowel obstruction in the anterior abdomen likely due to adhesion. This has the appearance of a moderate to high-grade partial obstruction. Surgical evaluation is recommended. 2. Small pulmonary nodules. Recommend noncontrast chest CT follow-up in one year. .
[2016-11-19] MEDS ORDERED: ONDANSETRON 4 MG/2 ML INJECTION IVP PRN (15:54)
--- NOTE | 2016-11-19 16:18 | History & Physical Report ---
<Lindsey Mohamud V - Last Filed: 11/19/16 16:15> History of Present Illness Date: 11/19/16 Chief complaint: Abdominal pain HPI: Soo is a pleasant 46 old female who presented to the emergency room today for evaluation of abdominal pain. She reported that pain started last evening and continued to be persistently worse overnight. Today she experienced increased vomiting with pain. Acute evaluation and treatment was performed in the emergency room. White count was found to be normal at 9.8, hemoglobin 14.5, hematocrit 43, platelet count 353. Sodium 141, potassium 4.3, BUN 21, creatinine 0.8, glucose 137, total bilirubin 1.6. LFTs are normal, troponin negative. Lipase 23. A urinalysis is obtained showing 3+ blood, 3-5 RBCs with trace bacteria. Urine is negative. CT of the abdomen is obtained that does reveal a small bowel obstruction in the anterior abdomen likely due to an adhesion. Patient was given IV fluids, Dilaudid and Zofran were given for symptom control. The hospitalist services were contacted and accepted patient for inpatient admission for further evaluation and treatment. Dr. Carnes is consulted for further surgical recommendations. Excited that patient stable be greater than 2 overnights. Review of Systems Comprehensive ROS: completed and no additional positive findings except those as stated - Gastrointestinal Gastrointestinal: Present: as per HPI, abdominal pain, change in bowel habits, nausea, vomiting PFSH Coronary artery disease Hypertension Asthma Elevated cholesterol History of migraine headaches. Former tobacco dependency-quit 12 years ago Surgical History: CABG x3 vessel- 08/2016 (Dr Benigno Mendez). 3. Umbilical hernia repair-1997. Ventral hernia repair with abdominal reconstruction Family History: Mother and father with positive history of hypertension and coronary artery disease - Social History Smoking status: Former smoker Substance use type: does not use Alcohol intake frequency: does not drink Housing: house Household members: spouse Current residence: Apartment/Private Home Social history: PCP Dr Bojorquez Medications Home Medications Medication Instructions Recorded Confirmed Type Albuterol Sulfate [Ventolin Hfa] 2 puff ORAL INH Q4H PRN #0 inhaler 08/03/16 History Montelukast Sodium 10 mg PO HS #0 tab 08/03/16 11/19/16 History clonazePAM [Clonazepam] 0.5 tab PO HS PRN #0 tab 08/03/16 11/19/16 History Acetaminophen 650 mg PO Q4HR PRN 09/01/16 11/19/16 History Atorvastatin [Lipitor] 80 mg PO HS 09/01/16 11/19/16 History Nitroglycerin 0.4 mg SL Q5MIN3 PRN 09/01/16 11/19/16 History Flonase (Fluticasone) 50 mcg nasal 2 spray INTRANASAL BID g 09/03/16 11/19/16 History spray Lasix (Furosemide) 20 mg tablet 40 mg PO BID tab 09/03/16 11/19/16 History Spiriva Respimat (tiotropium 2 puff INH DAILY g 09/03/16 11/19/16 History bromide) 2.5 mcg/actuation, inhalation Symbicort (Budesonide 160 1 puff INH BID g 09/03/16 11/19/16 History mcg-Formoterol 4.5 mcg)/actuation aerosol inhaler aspirin 81 mg tablet,delayed 81 mg PO DAILY tab 09/03/16 11/19/16 History release bupropion HCl SR 200 mg tablet,12 200 mg PO BID 09/03/16 11/19/16 History hr sustained-release lisinopril 2.5 mg tablet 2.5 mg PO DAILY tab 09/03/16 11/19/16 History potassium chloride ER 10 mEq 10 meq PO DAILY tab 09/03/16 11/19/16 History tablet,extended release Cetirizine HCl [Zyrtec] 10 mg PO HS 11/19/16 11/19/16 History Magnesium Citrate 100 mg PO HS 11/19/16 11/19/16 History Allergies Allergy/AdvReac Type Severity Reaction Status Date / Time meperidine Allergy Severe HALLUCINATI Verified 11/19/16 12:42 ONS morphine Allergy Severe HYPOTENSION Verified 11/19/16 12:42 nerissa Allergy Unknown SWELLING Verified 11/19/16 12:42 Exam Vital Signs: Temperature 98.2 F 11/19/16 11:43 Pulse Rate 105 H 11/19/16 15:08 Respiratory Rate 16 11/19/16 15:08 Blood Pressure 142/88 H 11/19/16 15:08 Pulse Oximetry 98 11/19/16 15:08 - Constitutional Present: no acute distress, well nourished, well developed - Routine HEENT Exam Eye: Present: EOMI ENT: Present: mucous membranes moist, dentition normal - Routine Respiratory Exam Present: CTA bilaterally. Absent: wheezes - Routine Cardiovascular Exam Present: RRR, S1, S2. Absent: murmur - Routine Abdominal Exam Present: soft, tenderness, distended. Absent: normoactive bowel sounds ( hypoactive) - Routine Extremities Exam Present: full ROM, pulses intact, normal capillary refill - Routine Back/Spine/Pelvis Exam Back/Spine: Present: full ROM - Routine Skin Exam Present: intact, dry, warm - Routine Neurological Exam Present: alert, oriented X3, CN II-XII intact - Routine Psychiatric Exam Present: normal affect Results - Labs CBC & Chem 7: 11/19/16 12:50 11/19/16 12:50 Assessment and Plan (1) Small bowel obstruction due to adhesions Current visit: Yes Status: Acute (2) Abdominal pain Current visit: Yes Status: Acute DVT Prophylaxis: SCD's Resuscitation Status: Full Code Assessment and Plan: Impression Small bowel obstruction due to adhesions. Acute abdominal pain Nausea Coronary artery disease Hypertension Asthma Hypercholesterolemia Plan Admit patient to inpatient status under the care of Dr. Vilchis for acute small bowel obstruction with abdominal pain. Nothing by mouth status. May need to place NG tube for decompression of the stomach. Surgical consultation by Dr. Carnes Normal saline at 100 ML per hour for gentle hydration Continue with Zofran and Dilaudid for pain and nausea control. Will continue patient's home Ventolin and Symbicort as well as DuoNeb as needed. Given patient's history of asthma. Remaining oral home medications will be placed on hold at this time will order lorazepam as needed for anxiety SCDs to bilateral lower extremity for DVT prophylaxis Recheck CBC and CMP tomorrow morning to follow blood counts, renal function and electrolytes Will discuss further orders and plan of care with attending, Dr. Vilchis. At time of discharge medical care will return to primary care provider Dr. Bojorquez Hospital Course Summary Disclaimer: The visit summary below is not to be considered part of the above Progress Note. Hospital Course: 11/19/16 Impression Small bowel obstruction due to adhesions. Acute abdominal pain Nausea Coronary artery disease Hypertension Asthma Hypercholesterolemia Plan Admit patient to inpatient status under the care of Dr. Vilchis for acute small bowel obstruction with abdominal pain. Nothing by mouth status. May need to place NG tube for decompression of the stomach. Surgical consultation by Dr. Carnes Normal saline at 100 ML per hour for gentle hydration Continue with Zofran and Dilaudid for pain and nausea control. Will continue patient's home Ventolin and Symbicort as well as DuoNeb as needed. Given patient's history of asthma. Remaining oral home medications will be placed on hold at this time will order lorazepam as needed for anxiety SCDs to bilateral lower extremity for DVT prophylaxis Recheck CBC and CMP tomorrow morning to follow blood counts, renal function and electrolytes Will discuss further orders and plan of care with attending, Dr. Vilchis. At time of discharge medical care will return to primary care provider Dr. Bojorquez <Anastacio Vilchis - Last Filed: 11/19/16 17:07> History of Present Illness Date: 11/19/16 [facility] Patient Stated Medical History Migraine Yes Other HEENT Yes: chonic sinusitis Hypertension Yes Myocardial Infarction Yes: nstemi Asthma Yes Other Musculoskeletal Yes: fx 5th metatarsal Shingles Yes Depression Yes Exam Vital Signs: Temperature 99.4 F 11/19/16 16:19 Pulse Rate 94 11/19/16 16:19 Respiratory Rate 15 11/19/16 16:19 Blood Pressure 121/78 11/19/16 16:19 Pulse Oximetry 98 11/19/16 16:19 Results - Labs CBC & Chem 7: 11/19/16 12:50 11/19/16 12:50 Assessment and Plan (1) Small bowel obstruction due to adhesions Current visit: Yes Status: Acute (2) Abdominal pain Current visit: Yes Status: Acute Assessment and Plan: Impression Small bowel obstruction due to adhesions. Acute abdominal pain Nausea Coronary artery disease Hypertension Asthma Hypercholesterolemia Morbid obesity with BMI 46.6 Have independently interviewed and examined pt. Chart reviewed. Case discussed with ED physician and my LAND ME[employer]ER. Care plan developed with supervision; agree with above. Developed significant abdominal hernias with per 13 years ago - needed extensive surgical reconstruction afterwards. Since then, has had episodes where she feels her bowels are starting to lock up - developed increased crampy ab pain and nausea. Had maybe 10 of these episodes. Typically come on if 'eat something she shouldn't.' Usually pain with last 12 hours at the most and resolves spontaneously. Yesterday morning was in her typical state of health. At some raw carrots and broccoli (as didn't want to eat telugu fries) . By evening, beginning to have crampy ab pain. Decreased oral intake (small sips of liquid). Overnight, pain increased severely. Multiple episodes of emesis. Not passing stool. Urine output decreasing. Presents to ED for evaluation. Radiology showing evidence of bowel obstruction. Admitted for bowel rest and treatment. Anticipate greater than 2 midnights of care needed. Lungs: clear - no crackles or wheezes. CV: regular AB: soft obese, mild/diffuse tenderness without rebound. BS decreased MSE: awake alert appropriate Plan: Inpatient admission for treatment of acute SBO-anticipate greater than 2 midnights of care needed. NPO for bowel rest and to help decrease nausea. Discussed about NG decompression, but pt would rather have episodes of nausea than the NG; will hold for now. IVF for hydration. IV Reglan 10mg Every 6 hours to help nausea (pt will use this at home if symptoms developed). Control pain and nausea. Consult with Dr Carnes for surgical evaluation. SCD for DVT prevention. Monitor lab. - Time spent with patient greater than 35 minutes Hospital Course Summary Disclaimer: The visit summary below is not to be considered part of the above Progress Note.
[2016-11-19] MEDS ORDERED: ALBUTEROL 2.5mg/3ml (0.083%) NEB AEROSOL PRN (16:29)
[2016-11-19] MEDS ORDERED: HYDROMORPHONE 2 MG/ML INJECTION IVP PRN (16:29)
[2016-11-19] MEDS ORDERED: ALBUTEROL/IPRATROPIUM 2.5mg-0.5mg/3ml NEB AEROSOL PRN (16:30)
[2016-11-19] MEDS ORDERED: INHALER ASSIST DEVICE (Optichamber) MC ONE (16:52)
[2016-11-19] MEDS: NS 1,000 ML IV SCH (17:12)
[2016-11-19] MEDS: METOCLOPRAMIDE 10mg/2ml INJECTION IVP SCH (17:24)
--- NOTE | 2016-11-19 18:16 | General Surgery Consult Note ---
Consult date: 11/19/16 Attending Physician: Anastacio Vilchis MD Reason for consult: abdominal pain History of present illness: Per Dr. Carnes [facility] Patient Stated Medical History Migraine Yes Other HEENT Yes: chonic sinusitis Hypertension Yes Myocardial Infarction Yes: nstemi Asthma Yes Other Musculoskeletal Yes: fx 5th metatarsal Shingles Yes Depression Yes Surgical History: CABG x3 vessel- 08/2016 (Dr Benigno Mendez). 3. Umbilical hernia repair-1997. 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) Current residence: Apartment/Private Home Medications Home Medications Medication Instructions Recorded Confirmed Type Albuterol Sulfate [Ventolin Hfa] 2 puff ORAL INH Q4H PRN #0 inhaler 08/03/16 History Montelukast Sodium 10 mg PO HS #0 tab 08/03/16 11/19/16 History clonazePAM [Clonazepam] 0.5 tab PO HS PRN #0 tab 08/03/16 11/19/16 History Acetaminophen 650 mg PO Q4HR PRN 09/01/16 11/19/16 History Atorvastatin [Lipitor] 80 mg PO HS 09/01/16 11/19/16 History Nitroglycerin 0.4 mg SL Q5MIN3 PRN 09/01/16 11/19/16 History Flonase (Fluticasone) 50 mcg nasal 2 spray INTRANASAL BID g 09/03/16 11/19/16 History spray Lasix (Furosemide) 20 mg tablet 40 mg PO BID tab 09/03/16 11/19/16 History Spiriva Respimat (tiotropium 2 puff INH DAILY g 09/03/16 11/19/16 History bromide) 2.5 mcg/actuation, inhalation Symbicort (Budesonide 160 1 puff INH BID g 09/03/16 11/19/16 History mcg-Formoterol 4.5 mcg)/actuation aerosol inhaler aspirin 81 mg tablet,delayed 81 mg PO DAILY tab 09/03/16 11/19/16 History release bupropion HCl SR 200 mg tablet,12 200 mg PO BID 09/03/16 11/19/16 History hr sustained-release lisinopril 2.5 mg tablet 2.5 mg PO DAILY tab 09/03/16 11/19/16 History potassium chloride ER 10 mEq 10 meq PO DAILY tab 09/03/16 11/19/16 History tablet,extended release Cetirizine HCl [Zyrtec] 10 mg PO HS 11/19/16 11/19/16 History Magnesium Citrate 100 mg PO HS 11/19/16 11/19/16 History Allergies Allergy/AdvReac Type Severity Reaction Status Date / Time meperidine Allergy Severe HALLUCINATI Verified 11/19/16 12:42 ONS morphine Allergy Severe HYPOTENSION Verified 11/19/16 12:42 nerissa Allergy Unknown SWELLING Verified 11/19/16 12:42 Review of Systems 10-point ROS: negative except for HPI and the following: - Cardiovascular Cardiovascular: Present: other (3-vessel CABG in August 2016, not on blood thinners other than ASA) - Vital Signs Last Vital Signs Temp 99.4 F 11/19/16 16:19 Pulse 94 11/19/16 17:13 Resp 16 11/19/16 17:13 BP 121/78 11/19/16 16:19 Pulse Ox 98 11/19/16 17:13 - Laboratory Result Diagrams: 11/19/16 12:50 11/19/16 12:50 Hospital Course Summary Disclaimer: The visit summary below is not to be considered part of the above Progress Note. Hospital Course: 11/19/16 Impression Small bowel obstruction due to adhesions. Acute abdominal pain Nausea Coronary artery disease Hypertension Asthma Hypercholesterolemia Plan Admit patient to inpatient status under the care of Dr. Vilchis for acute small bowel obstruction with abdominal pain. Nothing by mouth status. May need to place NG tube for decompression of the stomach. Surgical consultation by Dr. Carnes Normal saline at 100 ML per hour for gentle hydration Continue with Zofran and Dilaudid for pain and nausea control. Will continue patient's home Ventolin and Symbicort as well as DuoNeb as needed. Given patient's history of asthma. Remaining oral home medications will be placed on hold at this time will order lorazepam as needed for anxiety SCDs to bilateral lower extremity for DVT prophylaxis Recheck CBC and CMP tomorrow morning to follow blood counts, renal function and electrolytes Will discuss further orders and plan of care with attending, Dr. Vilchis. At time of discharge medical care will return to primary care provider Dr. Bojorquez
[2016-11-20] MEDS: METOCLOPRAMIDE 10mg/2ml INJECTION IVP SCH ×2 (00:35→06:13)
[2016-11-20] MEDS: NS 1,000 ML IV SCH ×2 (03:52→14:46)
--- NOTE | 2016-11-20 07:13 | Consultation ---
DATE OF CONSULTATION 11/19/2016 FINDINGS Mrs. Be is a 46-year-old female whom I was asked to see this evening as a result of her history and physical findings of abdominal pain in conjunction with an abnormal CT scan revealing evidence for a small bowel obstruction. The patient informs me that in 2003 she had undergone a . The patient states that she had numerous hernias present prior to her and C- section. The patient states that in 2003 following this her OB physician was unable to close her abdomen. The patient states that at that time a general surgeon had incorporated a large piece of mesh into the closure to facilitate closure of her abdomen. The patient states that since that time she has had some intermittent episodes that she feels are consistent with that of partial small bowel obstruction. 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 The patient states that in the past she has had a couple of episodes where she would develop a component of abdominal pain, nausea and vomiting. Usually these episodes are fairly short-lived and last for 8-12 hours and resolve on their own behalf. The patient has recently undergone coronary artery bypass grafting in August of this year. The patient states that yesterday she had "another one of these episodes" of a possible partial small bowel obstruction. The patient states that she began to experience a component of pain within her midabdomen. She describes his pain as being located just above her umbilicus. Pain was fairly intense in nature. The patient states the pain began to improve somewhat and that she had taken a cathartic which she has done in the past to facilitate "movement of her bowels. " The patient states that after taking this laxative her abdominal pain became more severe in nature. She states that began to have some nausea and vomiting. The patient subsequently presented for further evaluation and underwent a CT scan revealing evidence for a bowel obstruction. The patient was admitted to the hospital therefore for further care. This evening the patient states that she is feeling significantly better. Her abdominal pain has, for the most part , resolved. She does state that she did receive some Dilaudid earlier today, however. She denies any nausea at this time. She did not have an NG placed following her admission. She has had no recent episodes of emesis. PAST MEDICAL HISTORY Will be performed by my nurse practitioner, Deep Diallo. PAST SURGICAL HISTORY Will be performed by my nurse practitioner, Deep Diallo. MEDICATIONS Will be performed by my nurse practitioner, Deep Diallo. ALLERGIES Will be performed by my nurse practitioner, Deep Diallo. SOCIAL HISTORY Will be performed by my nurse practitioner, Deep Diallo. FAMILY HISTORY Will be performed by my nurse practitioner, Deep Diallo. REVIEW OF SYSTEMS Will be performed by my nurse practitioner, Deep Diallo. PHYSICAL EXAMINATION Soo is a 46-year-old female who, upon my entering the room this evening, did not appear to be in acute distress. VITALS: Temperature 99.4, pulse 94, respirations 16, blood pressure 121/78, SaO2 98% on room air. HEENT: Normocephalic. Pupils are equal, round and reactive to light and accommodation. CHEST: Clear to auscultation bilaterally. HEART: Regular rate and rhythm. Normal S1 and S2 without gallops, murmurs or clicks. ABDOMEN: Visualization of the abdomen does reveal a prior well-healed midline surgical incision extending from just above the umbilicus down towards the pubic symphysis region. I do not see any obvious areas of prominence to suggest a hernia. There is no erythema of the skin. Palpation of the abdomen was then undertaken. The abdomen was somewhat firm and distended. The patient , however, did not have any element of pain throughout her abdomen upon fairly firm palpation. I was unable to appreciate any evidence for a fascial defect or discrete mass. No evidence of hepatomegaly or other abnormal masses. EXTREMITIES: Without clubbing, cyanosis, or edema. NEURO: Cranial nerves II-XII grossly intact. Patient is without focal motor or sensory deficits. LABORATORY/RADIOGRAPH EVALUATION The patient had a CBC upon admission that was unremarkable. White count was 9.8. Hemoglobin is 14.5. Slight left shift with 88% neutrophils. CMP was obtained. BUN was elevated at 21.0. Total bilirubin is slightly elevated at 1.6. The patient had a CT scan of her abdomen and pelvis obtained. Scoutogram on the CT scan did not reveal marked dilatation of the small bowel. On the scoutogram one see some dilated small bowel loops within the midabdomen/left upper quadrant. On the CT scan itself one can see some dilated loops of small bowel proximally with a distal small bowel that is decompressed. One can appreciate some clips along her anterior abdominal wall consistent with her prior ventral herniorrhaphy. One could also see some fecalization of the small bowel indicative that this may be more of a chronic issue. Radiology dictated that the patient had a small bowel obstruction in the anterior abdominal wall likely due to an adhesion. The appearance was described as being "moderate to high-grade." The patient was also incidentally found to have some small pulmonary nodules. ASSESSMENT 46-year-old female with a small bowel obstruction. The patient is without an acute surgical abdomen at this time. PLAN I would recommend that we continue with current treatment of IV fluids, bowel rest and intravenous emetics and narcotics. Will hold off on placing NG at this time secondary to the fact that the patient does appear to be improving clinically and has not had any further nausea or vomiting. It would be my recommendation that if the patient continues on this course that, tomorrow morning, we go ahead and proceed with a "Gastrografin challenge"/Gastrografin small bowel follow-through. Will await her small bowel results and proceed accordingly. I did inform the patient that I will be leaving tomorrow morning/ early afternoon for vacation. I will discuss the case with Dr. Clark who will be covering my surgical patients during my absence. DAGO
[2016-11-20 07:34] VITALS: BP 124/65; TEMP 98.1; O2SAT 96
[2016-11-20] MEDS ORDERED: DIATRIZOATE MEGLUMINE/SOD. (66%/10%) 120ml SOLN ONE (08:07)
--- NOTE | 2016-11-20 10:07 | XRay Report ---
Indication: small bowel obstruction PROCEDURE: XR small bowel follow through: Encounter: Initial Comparison: CT abdomen and pelvis dated November 19, 2016 Findings: Solar [employer] Consultant And Designer radiograph was performed demonstrating an overall nonobstructive bowel gas pattern with some residual contrast material in the colon. Water-soluble contrast was administered orally followed by serial abdominal radiographs. Contrast traverses the small bowel rapidly reaching the colon at 20 minutes following administration. Contrast traversed entirely through the colon at less than one hour following administration. Impression: Abnormally rapid colonic transit time of less than 20 minutes. No evidence of acute obstruction. .
--- NOTE | 2016-11-20 13:00 | Progress Note ---
DATE OF SERVICE 11/20/2016 FINDINGS Soo denies significant abdominal pain this morning. She states that she did have a small amount of flatus. She has not had a BM. OBJECTIVE VITALS: Afebrile. Normotensive. Current vitals include temperature 98.1, pulse 85, respirations 18, blood pressure 124/65, SaO2 96% on room air. HEENT: Normocephalic. Pupils are equally round and react to light and accommodation. CHEST: Clear to auscultation bilaterally. HEART: Regular rate and rhythm. Normal S1, S2, without gallops, murmurs or clicks. ABDOMEN: Palpation of the abdomen reveals it to be less distended today. Abdomen is softer. There is no evidence for guarding or rebound. LABORATORY/RADIOGRAPHIC EVALUATION The patient had a CBC today and her white count was 7.6. Hemoglobin 12.3. CMP obtained and essentially within normal limits. ASSESSMENT 46-year-old female with probable partial small bowel obstruction. PLAN Gastrografin small bowel follow-through. Will proceed today with a Gastrografin small bowel follow-through and hopefully the contrast will progress through her GI tract without difficulty. The patient's diet will then be advanced and perhaps discharge this afternoon. Again, will await results and proceed accordingly. DAGO
[2016-11-20 16:25] VITALS: PULSE 99
--- NOTE | 2016-11-20 17:00 | Progress Note ---
Subjective: F/U: Small bowel obstruction Doing much better today. Ab pain decreased. Underwent SBFT showing no obstruction. Significant stool output post SBFT. Diet advanced and patient eating and drinking well. Breathing well. No chest pain. Ambulating well. Feels ready to go home. Objective Vital signs: Temperature 98.1 F 11/20/16 07:33 Pulse Rate 99 11/20/16 16:00 Respiratory Rate 16 11/20/16 10:41 Blood Pressure 124/65 11/20/16 07:33 Pulse Oximetry 96 11/20/16 07:33 Height/Weight/BMI: Weight 124.4 kg - Constitutional Present: no acute distress, well nourished, well developed, cooperative - Routine HEENT Exam Head: Present: normocephalic, atraumatic Eye: Present: EOMI, PERRL ENT: Present: mucous membranes moist - Routine Respiratory Exam Present: CTA bilaterally. Absent: respiratory distress, rhonchi, wheezes, crackles - Routine Cardiovascular Exam Present: RRR, no murmur - Routine Abdominal Exam Present: soft, normoactive bowel sounds, non distended, non tender - Routine Extremities Exam Present: no edema. Absent: cyanosis, clubbing - Routine Musculoskeletal Exam Musculoskeletal: Present: no clubbing or cyanosis, normal strength - Routine Skin Exam Present: intact, dry, warm - Routine Neurological Exam Present: alert, oriented X3, CN II-XII intact, moving all extremities, vision grossly intact, hearing grossly intact. Absent: motor deficit - Routine Psychiatric Exam Present: normal affect, normal thought process, cooperative, good insight, good judgment Results - Labs CBC & Chem 7: 11/20/16 04:36 11/20/16 04:36 Assessment and Plan (1) Small bowel obstruction due to adhesions Current visit: Yes Status: Acute (2) Abdominal pain Current visit: Yes Status: Acute DVT Prophylaxis: SCD's Resuscitation Status: Full Code Assessment and Plan: Impression Small bowel obstruction due to adhesions. Acute abdominal pain Nausea Coronary artery disease Hypertension Asthma Hypercholesterolemia Morbid obesity with BMI 46.6 Plan Doing much better today. Ab pain decreased. Underwent SBFT showing no obstruction. Significant stool output post SBFT. Diet advanced and patient eating and drinking well. Breathing well. No chest pain. Ambulating well. Feels ready to go home. Cased discussed with Dr Carnes; with improvement of patients symptoms he feels can discharge today. Medically doing well. IVF stopped this afternoon and patient maintaining well without. Will discharge to home. Reglan prn nausea. Continue chronic medications. Diet as she is able. F/U with Dr Bojorquez in 1 week. See orders for details. Sepsis Assessment - Evaluation Sepsis screening result: No Definite Risk Hospital Course Summary Disclaimer: The visit summary below is not to be considered part of the above Progress Note. Hospital Course: 11/19/16 Impression Small bowel obstruction due to adhesions. Acute abdominal pain Nausea Coronary artery disease Hypertension Asthma Hypercholesterolemia Plan Admit patient to inpatient status under the care of Dr. Vilchis for acute small bowel obstruction with abdominal pain. Nothing by mouth status. May need to place NG tube for decompression of the stomach. Surgical consultation by Dr. Carnes Normal saline at 100 ML per hour for gentle hydration Continue with Zofran and Dilaudid for pain and nausea control. Will continue patient's home Ventolin and Symbicort as well as DuoNeb as needed. Given patient's history of asthma. Remaining oral home medications will be placed on hold at this time will order lorazepam as needed for anxiety SCDs to bilateral lower extremity for DVT prophylaxis Recheck CBC and CMP tomorrow morning to follow blood counts, renal function and electrolytes At time of discharge medical care will return to primary care provider Dr. Bojorquez. 11/20/16 Doing much better today. Ab pain decreased. Underwent SBFT showing no obstruction. Significant stool output post SBFT. Diet advanced and patient eating and drinking well. Breathing well. No chest pain. Ambulating well. Feels ready to go home. Cased discussed with Dr Carnes; with improvement of patients symptoms he feels can discharge today. Medically doing well. IVF stopped this afternoon and patient maintaining well without. Will discharge to home. Reglan prn nausea. Continue chronic medications. Diet as she is able. F/U with Dr Bojorquez in 1 week. See orders for details.
--- NOTE | 2016-11-20 17:10 | Discharge Summary ---
Discharge Information Date of admission: 11/19/16 15:14 Anticipated date of discharge: 11/20/16 Attending Physician: Anastacio Vilchis MD Primary care physician: Jamil Bojorquez DO Consults: Physician Consult: Obdulio Carnes Reason For Exam: SBO - Discharge Diagnosis (1) Small bowel obstruction due to adhesions Status: Acute (2) Abdominal pain Status: Acute Discharge Diagnosis: Discharge diagnosis Small bowel obstruction due to adhesions Associated conditions and complications Acute abdominal pain Nausea Coronary artery disease Hypertension Asthma Hypercholesterolemia Morbid obesity with BMI 46.6 - Laboratory Labs: Admit Lab 11/19/16 12:50 WBC 9.8 Hgb 14.5 Hct 43.3 MCV 86.8 Plt Count 353 Neutrophils % (Manual) 88.0 H Lymphocytes % (Manual) 9.0 L Admit Lab 11/19/16 12:50 Sodium 141 Potassium 4.3 Chloride 105 Carbon Dioxide 26 BUN 21.0 H Creatinine 0.8 GFR Calculation 77 Glucose 137 H Calcium 9.5 Total Bilirubin 1.60 H ALT 36 Alkaline Phosphatase 96 Troponin I < 0.012 Lipase 23 11/20/16 04:36 11/20/16 04:36 - Radiology Radiology: Date of Exam: 11/19/16 PROCEDURE: CT abdomen pelvis w con Findings: Small subpleural 4 mm nodule in the right lower lobe. Subpleural 6 mm nodule in the left lower lobe on image #8. Calcified granuloma in the right lower lobe near the diaphragm on axial image #12. Changes of prior sternotomy noted. The liver appears normal. No bile duct dilatation. The gallbladder is distended but otherwise unremarkable. The spleen, pancreas and adrenal glands are within normal limits. Right renal cyst arising from the lower pole. Kidneys are otherwise normal. Retroaortic left renal vein noted incidentally. No abdominal or pelvic lymphadenopathy. The bladder is normal. Uterus and ovaries are unremarkable. No free fluid. Sigmoid diverticulosis without evidence of acute diverticulitis. Colon is totally decompressed. Distal small bowel is decompressed. There are multiple dilated small bowel loops in the anterior abdomen some fecalization. Bowel loops measure up to 4 cm in diameter. There are prior ventral repair changes with curvilinear densities that could represent mesh. Somewhat gradual transition to decompressed small bowel seen in the ileum on coronal images 17 through 20 in the right anterior abdomen. Impression: 1. Small bowel obstruction in the anterior abdomen likely due to adhesion. This has the appearance of a moderate to high-grade partial obstruction. Surgical evaluation is recommended. 2. Small pulmonary nodules. Recommend noncontrast chest CT follow-up in one year. Date of Exam: 11/20/16 PROCEDURE: XR small bowel follow through Findings: Machine [employer]er radiograph was performed demonstrating an overall nonobstructive bowel gas pattern with some residual contrast material in the colon. Water-soluble contrast was administered orally followed by serial abdominal radiographs. Contrast traverses the small bowel rapidly reaching the colon at 20 minutes following administration. Contrast traversed entirely through the colon at less than one hour following administration. Impression: Abnormally rapid colonic transit time of less than 20 minutes. No evidence of acute obstruction. History of Present Illness HPI: Soo is a pleasant 46 old female who presented to the emergency room today for evaluation of abdominal pain. She reported that pain started last evening and continued to be persistently worse overnight. Today she experienced increased vomiting with pain. Acute evaluation and treatment was performed in the emergency room. White count was found to be normal at 9.8, hemoglobin 14.5, hematocrit 43, platelet count 353. Sodium 141, potassium 4.3, BUN 21, creatinine 0.8, glucose 137, total bilirubin 1.6. LFTs are normal, troponin negative. Lipase 23. A urinalysis is obtained showing 3+ blood, 3-5 RBCs with trace bacteria. Urine is negative. CT of the abdomen is obtained that does reveal a small bowel obstruction in the anterior abdomen likely due to an adhesion. Patient was given IV fluids, Dilaudid and Zofran were given for symptom control. The hospitalist services were contacted and accepted patient for inpatient admission for further evaluation and treatment. Dr. Carnes is consulted for further surgical recommendations. Excited that patient stable be greater than 2 overnights. For complete details of the H&P refer to that document. Objective Vital signs: Temperature 98.1 F 11/20/16 07:33 Pulse Rate 99 11/20/16 16:00 Respiratory Rate 16 11/20/16 10:41 Blood Pressure 124/65 11/20/16 07:33 Pulse Oximetry 96 11/20/16 07:33 Height/Weight/BMI: Weight 124.4 kg Hospital Course This is a general summary of the patient's hospital course. For more details refer to the complete medical record. Hospital course: 11/19/16 Impression Small bowel obstruction due to adhesions. Acute abdominal pain Nausea Coronary artery disease Hypertension Asthma Hypercholesterolemia Plan Admit patient to inpatient status under the care of Dr. Vilchis for acute small bowel obstruction with abdominal pain. Nothing by mouth status. May need to place NG tube for decompression of the stomach. Surgical consultation by Dr. Carnes Normal saline at 100 ML per hour for gentle hydration Continue with Zofran and Dilaudid for pain and nausea control. Will continue patient's home Ventolin and Symbicort as well as DuoNeb as needed. Given patient's history of asthma. Remaining oral home medications will be placed on hold at this time will order lorazepam as needed for anxiety SCDs to bilateral lower extremity for DVT prophylaxis Recheck CBC and CMP tomorrow morning to follow blood counts, renal function and electrolytes At time of discharge medical care will return to primary care provider Dr. Bojorquez. 11/20/16 Doing much better today. Ab pain decreased. Underwent SBFT showing no obstruction. Significant stool output post SBFT. Diet advanced and patient eating and drinking well. Breathing well. No chest pain. Ambulating well. Feels ready to go home. Cased discussed with Dr Carnes; with improvement of patients symptoms he feels can discharge today. Medically doing well. IVF stopped this afternoon and patient maintaining well without. Will discharge to home. Reglan prn nausea. Continue chronic medications. Diet as she is able. F/U with Dr Bojorquez in 1 week. See orders for details. Time spent with patient: discharge greater than 30 minutes DVT Prophylaxis: SCD's Discharge Plan - Med Rec/Dispo Referrals/Follow Up: Jamil Bojorquez DO [Family Provider] - 1 Week (Hospital follow up - Small bowel obstruction ) Prescriptions: New Metoclopramide [Reglan] 10 mg PO Q6HR PRN #30 tab PRN Reason: Nausea Continue clonazePAM [Clonazepam] 0.5 tab PO HS PRN #0 tab PRN Reason: Prn Orders Montelukast Sodium 10 mg PO HS #0 tab Acetaminophen 650 mg PO Q4HR PRN PRN Reason: Pain Nitroglycerin 0.4 mg SL Q5MIN3 PRN PRN Reason: Chest Pain Magnesium Citrate 100 mg PO HS Atorvastatin [Lipitor] 80 mg PO HS Cetirizine HCl [Zyrtec] 10 mg PO HS potassium chloride ER 10 mEq tablet,extended release 10 meq PO DAILY tab Symbicort (Budesonide 160 mcg-Formoterol 4.5 mcg)/actuation aerosol inhaler 1 puff INH BID g Wellbutrin SR (bupropion HCl SR) 200 mg tablet,12 hr 200 mg PO BID Spiriva Respimat (tiotropium bromide) 2.5 mcg/actuation, inhalation 2 puff INH DAILY g lisinopril 2.5 mg tablet 2.5 mg PO DAILY tab Lasix (Furosemide) 20 mg tablet 40 mg PO BID tab aspirin 81 mg tablet,delayed release 81 mg PO DAILY tab Flonase (Fluticasone) 50 mcg nasal spray 2 spray INTRANASAL BID g No Action Albuterol Sulfate [Ventolin Hfa] 2 puff ORAL INH Q4H PRN #0 inhaler PRN Reason: SHORTNESS OF AIR/WHEEZING Metoprolol Tartrate 25 mg PO BIDWM 30 Days #60 tab Discharge Instructions/Outpatient Orders: Final Provider Discharge Instructions Location: Determined By Patient - Disposition 01 Discharged Home, Self-Care - Attestation Attestation Narrative: 11/20/16 17:19 I have independently interviewed and examined patient prior to discharge. See my progress note from today for details. Medically stable for discharge to home.
[2016-11-21 00:29] VITALS: RESP 16
== END 2016-11-20 17:47 | disposition home or self-care (01) | DRG 389 ==
LOC: ED 11:39 → SRG 15:14
PROVIDERS: ADMIT Hospitalist; ATTEND Hospitalist